=== PATIENT | female | born 1940 | race Caucasian/White ===

== ENCOUNTER 2016-03-19 12:30 | Inpatient (IN) | payer MEDICARE ==
[~2016-03-19] VITALS: Ht 162.6 cm; Wt 81.5 kg
[~2016-03-19 12:30] MED LIST: Aspirin Chew PO; CARV3.125 PO; FEMA2.5T PO; FURO1TAB60 PO; GLIM2TAB PO; LISI2.5T3 PO; METF500T PO; PRAS10TA PO; SIMV5TAB3 PO
[2016-03-19 12:32] VITALS: BP 127/79; PULSE 102; RESP 20; TEMP 97.9; O2SAT 94
--- NOTE | 2016-03-19 13:24 | PD ---
HPI Chief Complaint: Respiratory Symptoms Stated Complaint: SOB Time Seen by Provider: 13:24 Travel History International Travel<30 days: No Contact w/Intl Traveler<30days: No Known affected area: No History of Present Illness HPI 75-year-old female with history of CAD, recent stent placement in January 2016 , followed by Dr. Winn, breast cancer currently in remission, followed by Dr. Rodas, and diabetes, presents to the emergency department for evaluation of shortness of breath. Patient states that she is always mildly short of breath but it has gotten progressively worse and today she cannot even walk to the room and back without gasping for air. She denies any recent illnesses, fever, or chills. She has not had a cough. She denies any chest pain or tightness associated with this. Patient denies nausea or vomiting. No episodes of dizziness. She has no other symptoms to report. History Social History Alcohol Use: No Tobacco Use: No Allergies-Medications (Allergen,Severity, Reaction): Coded Allergies: Penicillin (Verified Allergy, Intermediate, rash, 01/27/16) Reported Meds & Prescriptions Reported Meds & Active Scripts Active Lisinopril 2.5 Mg Tab 2.5 Mg PO DAILY Effient (Prasugrel) 10 Mg Tab 10 Mg PO DAILY Lasix (Furosemide) 40 Mg Tab 40 Mg PO DAILY Coreg (Carvedilol) 3.125 Mg Tab 6.25 Mg PO Q12HR [Aspirin Chew] 81 MG Chew 81 Mg PO DAILY Reported Glimepiride 2 Mg Tab 2 Mg PO DAILY Take with breakfast or first main meal Metformin (Metformin HCl) 500 Mg Tab 1,000 Mg PO DAILY@1600 AT DINNER Metformin (Metformin HCl) 500 Mg Tab 500 Mg PO DAILY AT BREAKFAST Simvastatin 5 Mg Tab 20 Mg PO HS Femara (Letrozole) 2.5 Mg Tab 1 Tab PO DAILY Review of Systems Except as stated in HPI: all other systems reviewed are Neg Physical Exam Narrative GENERAL: Well-nourished female patient, sitting in a wheelchair, in no acute distress SKIN: Warm and dry. HEAD: Atraumatic. Normocephalic. EYES: Pupils equal and round. No scleral icterus. No injection or drainage. ENT: No nasal bleeding or discharge. Mucous membranes pink and moist. NECK: Trachea midline. No JVD. CARDIOVASCULAR: Tachycardic rate and rhythm. No murmur appreciated. RESPIRATORY: No accessory muscle use. Diminished to auscultation. Breath sounds equal bilaterally. GASTROINTESTINAL: Abdomen soft, non-tender, nondistended. Hepatic and splenic margins not palpable. MUSCULOSKELETAL: No obvious deformities. No clubbing. No cyanosis. 1+ bilateral lower extremity edema. NEUROLOGICAL: Awake and alert. No obvious cranial nerve deficits. Motor grossly within normal limits. Normal speech. PSYCHIATRIC: Appropriate mood and affect; insight and judgment normal. Data Data Last Documented VS Vital Signs Date Time Temp Pulse Resp B/P Pulse Ox O2 Delivery O2 Flow Rate FiO2 03/19/16 12:32 97.9 102 20 127/79 94 Room Air Orders Complete Blood Count With Diff (03/19/16 13:22) Basic Metabolic Panel (Bmp) (03/19/16 13:22) B-Type Natriuretic Peptide (03/19/16 13:22) D-Dimer (03/19/16 13:22) Act Partial Throm Time (Ptt) (03/19/16 13:22) Prothrombin Time / Inr (Pt) (03/19/16 13:22) Ckmb (Isoenzyme) Profile (03/19/16 13:22) Troponin I (03/19/16 13:22) Urinalysis - C+S If Indicated (03/19/16 13:22) Electrocardiogram (03/19/16 13:22) Chest, Single Ap (03/19/16 13:22) Labs Laboratory Tests Test 03/19/16 13:35 White Blood Count 7.6 TH/MM3 Red Blood Count 4.23 MIL/MM3 Hemoglobin 10.8 GM/DL Hematocrit 33.6 % Mean Corpuscular Volume 79.4 FL Mean Corpuscular Hemoglobin 25.6 PG Mean Corpuscular Hemoglobin 32.2 % Concent Red Cell Distribution Width 16.2 % Platelet Count 188 TH/MM3 Mean Platelet Volume 10.3 FL Neutrophils (%) (Auto) 70.4 % Lymphocytes (%) (Auto) 20.6 % Monocytes (%) (Auto) 7.3 % Eosinophils (%) (Auto) 1.1 % Basophils (%) (Auto) 0.6 % Neutrophils # (Auto) 5.3 TH/MM3 Lymphocytes # (Auto) 1.6 TH/MM3 Monocytes # (Auto) 0.6 TH/MM3 Eosinophils # (Auto) 0.1 TH/MM3 Basophils # (Auto) 0.0 TH/MM3 CBC Comment DIFF FINAL Differential Comment Prothrombin Time 11.7 SEC Prothromb Time International 1.1 RATIO Ratio Activated Partial 26.7 SEC Thromboplast Time D-Dimer Quantitative (PE/DVT) 1.79 MG/L FEU Sodium Level 140 MEQ/L Potassium Level 4.6 MEQ/L Chloride Level 107 MEQ/L Carbon Dioxide Level 25.4 MEQ/L Anion Gap 8 MEQ/L Blood Urea Nitrogen 16 MG/DL Creatinine 0.81 MG/DL Estimat Glomerular Filtration 69 ML/MIN Rate Random Glucose 192 MG/DL Calcium Level 9.2 MG/DL Total Creatine Kinase 38 U/L Troponin I 0.07 NG/ML B-Type Natriuretic Peptide 466 PG/ML MDM Medical Decision Making Medical Screen Exam Complete: Yes Emergency Medical Condition: Yes Medical Record Reviewed: Yes Differential Diagnosis CHF exacerbation versus ACS versus effusion versus malignancy Narrative Course 75 year-old female presents to the emergency department for evaluation of shortness of breath. Patient appears overall well and without distress. She does have 1+ edema bilateral lower extremities. She is mildly tachycardic. Workup is initiated in triage. With a medical bed becomes available, patient will be transferred to the medical pod and provider for further evaluation and disposition. Patient verbalizes understanding that if she chooses to leave prior to this, it would be AGAINST MEDICAL ADVICE and would not yet to have a diagnosis for safe disposition which could result in, but not limited to, worsening of her condition and or . Diagnosis Primary Impression: SOB (shortness of breath) Condition: Stable BasiaPennyMerlymonica RESENDIZ Mar 19, 2016 13:24
[2016-03-19 14:04] LABS: AUTOMATED NEUTROPHIL # 5.3 TH/MM3 (1.8-7.7); BASOPHIL % 0.6 % (0.0-2.0); EOSINOPHIL # 0.1 TH/MM3 (0-0.4); EOSINOPHIL % 1.1 % (0.0-4.0); HEMATOCRIT 33.6 % (35.0-46.0); HEMO FLAGS DIFF FINAL; LYMPH % 20.6 % (9.0-44.0); LYMPHOCYTE # 1.6 TH/MM3 (1.0-4.8); MEAN CELL VOLUME 79.4 FL (80.0-100.0); MEAN CORPUSCULAR HEMOGLOBIN 25.6 PG (27.0-34.0); MEAN CORPUSCULAR HGB CONC 32.2 % (32.0-36.0); MONO % 7.3 % (0.0-8.0); NEUT % 70.4 % (16.0-70.0); PLATELET COUNT 188 TH/MM3 (150-450); RED BLOOD COUNT 4.23 MIL/MM3 (4.00-5.30); RED CELL DISTRIBUTION WIDTH 16.2 % (11.6-17.2); WHITE BLOOD COUNT 7.6 TH/MM3 (4.0-11.0)
[2016-03-19 14:16] LABS: APTT (PATIENT) 26.7 SEC (24.3-30.1); INTERNATIONAL NORMALIZED RATIO 1.1 RATIO; PROTHROMBIN TIME - PATIENT 11.7 SEC (9.8-11.6)
[2016-03-19 14:22] LABS: BICARBONATE 25.4 MEQ/L (21.0-32.0); POTASSIUM 4.6 MEQ/L (3.5-5.1)
--- NOTE | 2016-03-19 15:02 | RADRPT ---
EXAM DATE/TIME: 03/19/2016 13:57 [facility] COMPARISON: CHEST SINGLE AP, January 27, 2016, 12:36. INDICATIONS : Short of breath for 2 weeks. MEDICAL HISTORY : Carcinoma, breast. Cardiovascular disease. SURGICAL HISTORY : Mastectomy, right. Cardiac stents. ENCOUNTER: Initial ACUITY: 2 weeks PAIN SCORE: 0/10 LOCATION: Bilateral chest FINDINGS: The heart is normal in size. There mild chronic interstitial changes. There is no overt congestive fa ilure. There is minimal blunting of the costophrenic sulcus bilaterally. There is a Holter monitor in place. The bony structures are grossly intact. CONCLUSION: 1. Chronic interstitial changes. Stable compared to previous examination. Davis Geronimo MD on March 19, 2016 at 14:49 Board Certified Radiologist. This report was verified electronically.
[2016-03-19 16:04] VITALS: BP 122/65; PULSE 97; RESP 20; O2SAT 95
--- NOTE | 2016-03-19 16:16 | EKG ---
Date Performed: 03/19/2016 Time Performed: 12:57:42 PTAGE: 75 years EKG: SINUS TACHYCARDIA WITH OCCASIONAL VENTRICULAR PREMATURE COMPLEXES POSSIBLE LEFT ATRIAL ENLA RGEMENT SEPTAL MYOCARDIAL INFARCTION ABNORMAL ECG COMPARED TO PRIOR ELECTROCARDIOGRAM, PVCs are now p resent. PREVIOUS TRACING : 01/28/2016 02.07 DOCTOR: Hayden Dominguez Interpretating Date/Time 03/19/2016 16:16:12
[2016-03-19 16:28] LABS: BLOOD, URINE NEG (NEG); COMMENT (UR) CULTURE INDICATED; CULTURE IF INDICATED CULTURE INDICATED; GLUCOSE,URINE NEG (NEG); KETONE, URINE TRACE mg/dL (NEG); MUCUS URINE FEW /lpf (OCC); NITRITE,URINE NEG (NEG); SQUAMOUS EPITHELIAL CELL URINE 1 /hpf (0-5); URINE COLOR YELLOW (YELLW/STRAW)
--- NOTE | 2016-03-19 16:50 | PD ---
Physical Exam Time Seen by Provider: 16:49 Narrative Patient was initially evaluated in triage by Merly jang DNP. See her note for initial assessment and evaluation. Patient states she has been with increased shortness of breath more than normal times one week. Worsening today and she called her card folder and was told to come to the ER. Belt Back Operator is Dr. Winn. She had stent placement in January and doesn't know why. She is also wearing a defibrillator and does not know why either. Denies recent surgery, rosacea, travel. Denies hemoptysis. Denies history of DVT or PE. Denies chest pain. Shortness of breath is worse with activity. Denies shortness of breath while at rest. She is currently on Eloquis; she says Dr. Winn placed her on Ahlquist after the stents were placed. Denies fever, chills, nausea, vomiting. Denies recent illness. Denies history of CHF. Denies asthma , COPD. Primary care provider is Dr. Ruelas. Allergic to penicillin. Denies tobacco use. History of diabetes, breast cancer. No other modifying factors or associated signs and symptoms. Data Data Last Documented VS Vital Signs Date Time Temp Pulse Resp B/P Pulse Ox O2 Delivery O2 Flow Rate FiO2 03/19/16 17:19 109 20 134/83 95 Room Air 03/19/16 12:32 97.9 Orders Complete Blood Count With Diff (03/19/16 13:22) Basic Metabolic Panel (Bmp) (03/19/16 13:22) B-Type Natriuretic Peptide (03/19/16 13:22) D-Dimer (03/19/16 13:22) Act Partial Throm Time (Ptt) (03/19/16 13:22) Prothrombin Time / Inr (Pt) (03/19/16 13:22) Ckmb (Isoenzyme) Profile (03/19/16 13:22) Troponin I (03/19/16 13:22) Urinalysis - C+S If Indicated (03/19/16 13:22) Electrocardiogram (03/19/16 13:22) Chest, Single Ap (03/19/16 13:22) Urine Culture (03/19/16 16:00) Ct Pulmonary Angiogram (03/19/16 ) Ceftriaxone Inj (Rocephin Inj) (03/19/16 17:15) Ckmb (Isoenzyme) Profile (03/19/16 17:15) Ckmb (Isoenzyme) Profile (03/19/16 20:15) Troponin I (03/19/16 17:15) Troponin I (03/19/16 20:15) Electrocardiogram (03/19/16 17:15) Electrocardiogram (03/19/16 20:15) Iohexol 350 Inj (Omnipaque 350 Inj) (03/19/16 17:58) Admit Order (Ed Use Only) (03/19/16 18:46) Labs Laboratory Tests Test 03/19/16 03/19/16 13:35 16:00 White Blood Count 7.6 TH/MM3 Red Blood Count 4.23 MIL/MM3 Hemoglobin 10.8 GM/DL Hematocrit 33.6 % Mean Corpuscular Volume 79.4 FL Mean Corpuscular Hemoglobin 25.6 PG Mean Corpuscular Hemoglobin 32.2 % Concent Red Cell Distribution Width 16.2 % Platelet Count 188 TH/MM3 Mean Platelet Volume 10.3 FL Neutrophils (%) (Auto) 70.4 % Lymphocytes (%) (Auto) 20.6 % Monocytes (%) (Auto) 7.3 % Eosinophils (%) (Auto) 1.1 % Basophils (%) (Auto) 0.6 % Neutrophils # (Auto) 5.3 TH/MM3 Lymphocytes # (Auto) 1.6 TH/MM3 Monocytes # (Auto) 0.6 TH/MM3 Eosinophils # (Auto) 0.1 TH/MM3 Basophils # (Auto) 0.0 TH/MM3 CBC Comment DIFF FINAL Differential Comment Prothrombin Time 11.7 SEC Prothromb Time International 1.1 RATIO Ratio Activated Partial 26.7 SEC Thromboplast Time D-Dimer Quantitative (PE/DVT) 1.79 MG/L FEU Sodium Level 140 MEQ/L Potassium Level 4.6 MEQ/L Chloride Level 107 MEQ/L Carbon Dioxide Level 25.4 MEQ/L Anion Gap 8 MEQ/L Blood Urea Nitrogen 16 MG/DL Creatinine 0.81 MG/DL Estimat Glomerular Filtration 69 ML/MIN Rate Random Glucose 192 MG/DL Calcium Level 9.2 MG/DL Total Creatine Kinase 38 U/L Troponin I 0.07 NG/ML B-Type Natriuretic Peptide 466 PG/ML Urine Color YELLOW Urine Turbidity HAZY Urine pH 5.0 Urine Specific [place] 1.020 Urine Protein NEG mg/dL Urine Glucose (UA) NEG mg/dL Urine Ketones TRACE mg/dL Urine Occult Blood NEG Urine Nitrite NEG Urine Bilirubin NEG Urine Urobilinogen LESS THAN 2.0 MG/DL Urine Leukocyte Esterase MOD Urine RBC 2 /hpf Urine WBC 13 /hpf Urine Squamous Epithelial 1 /hpf Cells Urine Mucus FEW /lpf Microscopic Urinalysis Comment CULTURE INDICATED MDM Medical Record Reviewed: Yes Supervised Visit with DSEIREE: Yes Narrative Course 75-year-old female initially evaluated in triage by Merly jang DNP. See her note for initial assessment and evaluation. Patient placed on cardiopulmonary monitor. Patient has had worsening shortness of breath over the past week. She was sent by her card folder Dr. Winn. Labs and radiology imaging reviewed. 164: Chest x-ray concludes Chronic interstitial changes. Stable compared to previous examination. CBC unremarkable. D-dimer 1.79. BNP 466. Troponin 0.07. Urinalysis was signs of infection. I spoke with Dr. Zhong, my attending physician, and she recommended CT pulmonary angiogram, serial cardiac enzymes, and to admit. CT pulmonary angiogram and serial cardiac enzymes ordered. Rocephin ordered for urinary tract infection. Call placed to Dr. Winn , the patient's card folder, to update him on patient's status. 1800: Talked with Dr. Moss, Belt Back Operator on-call for Dr. Winn, and updated him on patient's status. 1844: I spoke with [facility] Hospitalist; report given and patient will be admitted to Dr. Romero. Physician Communication Physician Communication Dr. [facility] Diagnosis Primary Impression: SOB (shortness of breath) Additional Impression: UTI (urinary tract infection) Qualified Code: N39.0 - Urinary tract infection without hematuria, site unspecified Admitting Information Admitting Physician Requests: Admit Joycelyn Doan [facility] Mar 19, 2016 16:50
[2016-03-19] MEDS ORDERED: ZOCO20TA PO (17:15)
[2016-03-19] MEDS ORDERED: cefTRIAXone INJ 1,000 MG in SODIUM CHLORIDE 0.9% INJ 100 ML IV ONE (17:15)
[2016-03-19] MEDS ORDERED: ASPI81CH CHEW (17:15)
[2016-03-19] MEDS ORDERED: CARV3.125 PO (17:16)
[2016-03-19] MEDS ORDERED: SPIR25TA PO (17:16)
[2016-03-19 17:19] VITALS: BP 134/83; PULSE 109; RESP 20; O2SAT 95
[2016-03-19] MEDS ORDERED: ZOCO40TA PO (17:19)
[2016-03-19] MEDS ORDERED: IOHEXOL 350 MG/ML 10 ML VIAL (for RAD DIAG) IV ONE (17:58)
--- NOTE | 2016-03-19 18:10 | RADRPT ---
EXAM DATE/TIME: 03/19/2016 17:48 [facility] COMPARISON: CHEST SINGLE AP, March 19, 2016, 13:57. INDICATIONS : Shortness of breath worsening in past week. IV CONTRAST: 84 cc Omnipaque 350 (iohexol) IV RADIATION DOSE: 23.38 CTDIvol (mGy) MEDICAL HISTORY : Carcinoma, breast. Hypercholesterolemia. SURGICAL HISTORY : Mastectomy, right. Coronary artery stent. ENCOUNTER: Initial ACUITY: 1 week PAIN SCALE: 0/10 LOCATION: chest TECHNIQUE: Volumetric scanning of the chest was performed using a pulmonary embolism protocol MIP images were re constructed. Using automated exposure control and adjustment of the mA and/or kV according to patien t size, radiation dose was kept as low as reasonably achievable to obtain optimal diagnostic quality images. FINDINGS: PULMONARY ARTERIES: No filling defects are seen in the pulmonary arteries through the segmental level. LUNGS: Mild occasional scarring or atelectasis. 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 Mildly enlarged AP window lymph node. MUSCULOSKELETAL: Within normal limits for patient age. MISCELLANEOUS: Previous right mastectomy. The visualized upper abdominal organs demonstrate no acute abnormality. CONCLUSION: No evidence of pulmonary embolism. Small bilateral pleural effusions. Mildly prominent AP window lymph node. Lizandro Nayak MD on March 19, 2016 at 18:04 Board Certified Radiologist. This report was verified electronically.
[2016-03-19] MEDS ORDERED: ONDANSETRON HCL 4 MG/2 ML VIAL IVP PRN (18:45)
[2016-03-19] MEDS ORDERED: NALOXONE HCL 0.4 MG/ML AMP IV PRN (18:45)
[2016-03-19] MEDS ORDERED: SODIUM CHLORIDE 0.9% FLUSH 5 ML FLUSH FLUSH PRN (18:45)
--- NOTE | 2016-03-19 19:26 | PD ---
Data Data Last Documented VS Vital Signs Date Time Temp Pulse Resp B/P Pulse Ox O2 Delivery O2 Flow Rate FiO2 03/19/16 17:19 109 20 134/83 95 Room Air 03/19/16 12:32 97.9 Orders Complete Blood Count With Diff (03/19/16 13:22) Basic Metabolic Panel (Bmp) (03/19/16 13:22) B-Type Natriuretic Peptide (03/19/16 13:22) D-Dimer (03/19/16 13:22) Act Partial Throm Time (Ptt) (03/19/16 13:22) Prothrombin Time / Inr (Pt) (03/19/16 13:22) Ckmb (Isoenzyme) Profile (03/19/16 13:22) Troponin I (03/19/16 13:22) Urinalysis - C+S If Indicated (03/19/16 13:22) Electrocardiogram (03/19/16 13:22) Chest, Single Ap (03/19/16 13:22) Urine Culture (03/19/16 16:00) Ct Pulmonary Angiogram (03/19/16 ) Ceftriaxone Inj (Rocephin Inj) (03/19/16 17:15) Ckmb (Isoenzyme) Profile (03/19/16 17:15) Ckmb (Isoenzyme) Profile (03/19/16 20:15) Troponin I (03/19/16 17:15) Troponin I (03/19/16 20:15) Electrocardiogram (03/19/16 17:15) Electrocardiogram (03/19/16 20:15) Iohexol 350 Inj (Omnipaque 350 Inj) (03/19/16 17:58) Admit Order (Ed Use Only) (03/19/16 18:46) Labs Laboratory Tests Test 03/19/16 03/19/16 03/19/16 13:35 16:00 17:30 White Blood Count 7.6 TH/MM3 Red Blood Count 4.23 MIL/MM3 Hemoglobin 10.8 GM/DL Hematocrit 33.6 % Mean Corpuscular Volume 79.4 FL Mean Corpuscular Hemoglobin 25.6 PG Mean Corpuscular Hemoglobin 32.2 % Concent Red Cell Distribution Width 16.2 % Platelet Count 188 TH/MM3 Mean Platelet Volume 10.3 FL Neutrophils (%) (Auto) 70.4 % Lymphocytes (%) (Auto) 20.6 % Monocytes (%) (Auto) 7.3 % Eosinophils (%) (Auto) 1.1 % Basophils (%) (Auto) 0.6 % Neutrophils # (Auto) 5.3 TH/MM3 Lymphocytes # (Auto) 1.6 TH/MM3 Monocytes # (Auto) 0.6 TH/MM3 Eosinophils # (Auto) 0.1 TH/MM3 Basophils # (Auto) 0.0 TH/MM3 CBC Comment DIFF FINAL Differential Comment Prothrombin Time 11.7 SEC Prothromb Time International 1.1 RATIO Ratio Activated Partial 26.7 SEC Thromboplast Time D-Dimer Quantitative (PE/DVT) 1.79 MG/L FEU Sodium Level 140 MEQ/L Potassium Level 4.6 MEQ/L Chloride Level 107 MEQ/L Carbon Dioxide Level 25.4 MEQ/L Anion Gap 8 MEQ/L Blood Urea Nitrogen 16 MG/DL Creatinine 0.81 MG/DL Estimat Glomerular Filtration 69 ML/MIN Rate Random Glucose 192 MG/DL Calcium Level 9.2 MG/DL Total Creatine Kinase 38 U/L 33 U/L Troponin I 0.07 NG/ML 0.06 NG/ML B-Type Natriuretic Peptide 466 PG/ML Urine Color YELLOW Urine Turbidity HAZY Urine pH 5.0 Urine Specific [place] 1.020 Urine Protein NEG mg/dL Urine Glucose (UA) NEG mg/dL Urine Ketones TRACE mg/dL Urine Occult Blood NEG Urine Nitrite NEG Urine Bilirubin NEG Urine Urobilinogen LESS THAN 2.0 MG/DL Urine Leukocyte Esterase MOD Urine RBC 2 /hpf Urine WBC 13 /hpf Urine Squamous Epithelial 1 /hpf Cells Urine Mucus FEW /lpf Microscopic Urinalysis Comment CULTURE INDICATED MDM Supervised Visit with DESIREE: Yes Narrative Course The history, exam, and medical decision-making in the associated midlevel provider note were completed with my assistance. I reviewed and agree with the findings presented. I attest that I had a [id number] encounter with the patient on the same day, and personally performed and documented my assessment and findings in the medical record. *My assessment and Findings: This is a 75-year-old female with a history congestive heart failure and recent an STEMI who presents to the emergency department with increasing dyspnea on exertion. Patient was recently changed from her Lasix to spironolactone and she says ever since then she's been feeling increasingly short of breath. She denies any chest pain. She was placed on a monitor and an IV was established. EKG was reassuring. I think patient requires observation for serial cardiac enzymes and cardiology consultation to ensure this is not an anginal equivalent. Diagnosis Primary Impression: SOB (shortness of breath) Additional Impression: UTI (urinary tract infection) Qualified Code: N39.0 - Urinary tract infection without hematuria, site unspecified Lisa Traylor MD Mar 19, 2016 19:26
[2016-03-19] MEDS: FUROSEMIDE 40 MG/4 ML VIAL IV PUSH SCH (19:42)
[2016-03-19 19:43] VITALS: BP 118/64; PULSE 102; RESP 22; O2SAT 95
[2016-03-19] MEDS: PRAVASTATIN SOD 80 MG TAB PO SCH (21:34)
[2016-03-19] MEDS: HEPARIN SODIUM - SQ 10,000 UNITS/ML VIAL SQ SCH (21:34)
[2016-03-19] MEDS: SODIUM CHLORIDE 0.9% FLUSH 5 ML FLUSH FLUSH SCH (21:34)
[2016-03-19] MEDS: CARVEDILOL 3.125 MG TAB PO SCH (21:34)
[2016-03-19] MEDS: ASPIRIN 81 MG CHEW TAB CHEW SCH (21:34)
[2016-03-19 21:35] VITALS: BP 125/67; PULSE 102; RESP 24; O2SAT 95
[2016-03-19 22:15] VITALS: BP 125/68; PULSE 101; RESP 16; TEMP 98.3; O2SAT 99
[2016-03-19] MEDS: GLIMEPIRIDE 2 MG TAB PO SCH (23:24)
[2016-03-20] VITALS (8 sets, daily range): BP systolic 108–126; BP diastolic 61–95; PULSE 88–108; RESP 16–24; TEMP 97.1–99.5; O2SAT 92–100
[2016-03-20 04:40] LABS: AUTOMATED NEUTROPHIL # 4.4 TH/MM3 (1.8-7.7); BASOPHIL % 0.6 % (0.0-2.0); EOSINOPHIL # 0.1 TH/MM3 (0-0.4); EOSINOPHIL % 1.7 % (0.0-4.0); HEMATOCRIT 31.7 % (35.0-46.0); HEMO FLAGS DIFF FINAL; LYMPH % 27.7 % (9.0-44.0); MEAN CELL VOLUME 77.4 FL (80.0-100.0); MEAN CORPUSCULAR HEMOGLOBIN 25.6 PG (27.0-34.0); MEAN CORPUSCULAR HGB CONC 33.1 % (32.0-36.0); MONO % 9.4 % (0.0-8.0); NEUT % 60.6 % (16.0-70.0); PLATELET COUNT 166 TH/MM3 (150-450); RED CELL DISTRIBUTION WIDTH 15.9 % (11.6-17.2); WHITE BLOOD COUNT 7.3 TH/MM3 (4.0-11.0)
[2016-03-20 05:05] LABS: BICARBONATE 27.8 MEQ/L (21.0-32.0); POTASSIUM 3.8 MEQ/L (3.5-5.1)
--- NOTE | 2016-03-20 05:31 | EKG ---
Date Performed: 03/19/2016 Time Performed: 18:10:56 PTAGE: 75 years EKG: BASELINE ARTIFACT PRESENT. SINUS TACHYCARDIA POSSIBLE LEFT ATRIAL ENLARGEMENT SEPTAL MYOCAR DIAL INFARCTION ABNORMAL ECG Nonspecific T wave changes COMPARED TO PRIOR ELECTROCARDIOGRAM, PVCs are no longer seen. PREVIOUS TRACING : 03/19/2016 12.57 DOCTOR: Hayden Dominguez Interpretating Date/Time 03/20/2016 05:31:19
[2016-03-20] MEDS ORDERED: LETROZOLE 2.5 MG PO SCH (09:00)
--- NOTE | 2016-03-20 09:23 | HHI.HP ---
HPI Service [facility] Primary Care Physician Non-Staff Admission Diagnosis shortness of breath, urinary tract infection Diagnoses: Chief Complaint: sob (Bebe Acosta) Travel History International Travel<30 Days: No Contact w/Intl Traveler <30 Da: No Traveled to Known Affected Are: No (Bebe Acosta) History of Present Illness This is a 75-year-old female patient with past medical history which includes breast cancer status post mastectomy chemo and radiation 16 years ago, thyroid nodularities s/p biopsy-benign, hyperlipidemia and diabetes mellitus type 2. Patient was recently admitted in January for chest pain, was found positive for non-STEMI, CHF. Underwent PCI with stent to mid LAD 01/2016. Was found with EF of 15%, was ordered a Life vest. Patient was discharged home in stable condition with instructions to follow up with cardiology for evaluation of LV function and further plans for cardiomyopathy. According to the patient, she has been mildly short of breath with activity however since yesterday she has noted increased dyspnea with minimal exertion. States that she was gasping for air. No chest pain, no palpitations. Has noted increased ankle swelling. Has been compliant with taking diuretics. Patient denies any fever, no chills, no recent illnesses. No abdominal pain, no nausea vomiting or diarrhea. Patient was evaluated in the emergency room, CBC was remarkable for hemoglobin 10.8 and hematocrit of 33.6. BMP was unremarkable, blood glucose was 182. Troponin mildly elevated 0.07. B natruretic peptide 466. UA was positive for leukocyte esterase and WBC. No urinary symptoms. Chest x-ray showed chronic interstitial changes that were stable compared to previous exam. CTA was completed, pulmonary embolism was ruled out. She was noted with small bilateral pleural effusions, mildly prominent AP window lymph node. Cardiology was called from the emergency room and informed of patient admission. Patient received Lasix and has been diuresing well. Indications feeling slightly improved. She was started on Rocephin for UTI. Patient is admitted for further evaluation and treatment. (Bebe Acosta) Review of Systems Constitutional: COMPLAINS OF: Weight gain, DENIES: Diaphoretic episodes, Fatigue, Fever, Weight loss, Chills, Dizziness, Change in appetite, Night Sweats Endocrine: DENIES: Abnorml menstrual pattern, Heat/cold intolerance, Polydipsia , Polyuria, Polyphagia Eyes: DENIES: Blurred vision, Diplopia, Eye inflammation, Eye pain, Vision loss , Photosensitivity, Double Vision Ears, nose, mouth, throat: DENIES: Tinnitus, Hearing loss, Vertigo, Nasal discharge, Oral lesions, Throat pain, Hoarseness, Ear Pain, Running Nose, Epistaxis, Sinus Pain, Toothache, Odynophagia Respiratory: DENIES: Apneas, Cough, Snoring, Wheezing, Hemoptysis, Sputum production, Shortness of breath Cardiovascular: COMPLAINS OF: Dyspnea on Exertion, Lower Extremity Edema, DENIES: Chest pain, Palpitations, Syncope, PND, Orthopnea, Claudication Gastrointestinal: DENIES: Abdominal pain, Black stools, Bloody stools, Constipation, Diarrhea, Nausea, Vomiting, Difficulty Swallowing, Anorexia Genitourinary: DENIES: Abnormal vaginal bleeding, Dysmenorrhea, Dyspareunia, Sexual dysfunction, Urinary frequency, Urinary incontinence, Urgency, Hematuria , Dysuria, Nocturia, Vaginal discharge Musculoskeletal: DENIES: Joint pain, Muscle aches, Stiffness, Joint Swelling, Back pain, Neck pain Integumentary: DENIES: Abnormal pigmentation, Pruritus, Rash, Nail changes, Breast masses, Breast skin changes, Nipple discharge Hematologic/lymphatic: DENIES: Bruising, Lymphadenopathy Immunologic/allergic: DENIES: Eczema, Urticaria Neurologic: DENIES: Abnormal gait, Headache, Localized weakness, Paresthesias, Seizures, Speech Problems, Tremor, Poor Balance Psychiatric: DENIES: Anxiety, Confusion, Mood changes, Depression, Hallucinations, Agitation, Suicidal Ideation, Homicidal Ideation, Delusions ( Bebe Acosta) Past Family Social History Past Medical History status post mastectomy chemo and radiation 16 years ago, thyroid nodularities s/ p biopsy-benign, hyperlipidemia and diabetes mellitus type 2 S/P NSTEMI, PCI with stent to mid LAD 01/2016. Was found with EF of 15%, was ordered a Life vest CHF Past Surgical History Right mastectomy S/P cardiac cath with PCI and stent to mid LAD Reported Medications Reported Meds & Active Scripts Active Effient (Prasugrel) 10 Mg Tab 10 Mg PO DAILY Reported Zocor (Simvastatin) 40 Mg Tab 40 Mg PO HS Spironolactone 25 Mg Tab 25 Mg PO DAILY Coreg (Carvedilol) 3.125 Mg Tab 3.125 Mg PO Q12HR Aspirin 81 Mg Chew 81 Mg CHEW HS Glimepiride 2 Mg Tab 2 Mg PO BID Metformin (Metformin HCl) 500 Mg Tab 500 Mg PO BIDPC Femara (Letrozole) 2.5 Mg Tab 2.5 Mg PO DAILY (Bebe Acosta) Allergies: Coded Allergies: Penicillin (Verified Allergy, Intermediate, rash, 03/19/16) Active Ordered Medications Inpatient Medications Aspirin (Aspirin Chew) 81 mg HS CHEW Last administered on 03/19/16 21:34; Start 03/19/16 at 21:00 Carvedilol (Coreg) 3.125 mg Q12HR PO Last administered on 03/20/16 10:07; Start 03/19/16 at 21:00 Ceftriaxone Sodium/Sodium Chloride (Rocephin Inj/NS Inj) 100 ml @ 200 mls/hr ONCE ONCE IV Last administered on 03/19/16 17:19; Start 03/19/16 at 17:15; Stop 03/19/16 at 17:44; Status DC Furosemide (Lasix Inj) 40 mg BID@09,18 IV PUSH Last administered on 03/20/16 10 :06; Start 03/19/16 at 19:00 Glimepiride (Amaryl) 2 mg BID PO Last administered on 03/20/16 10:07; Start 03/19/16 at 21:00 Heparin Sodium (Porcine) (Heparin Inj) 5,000 units Q12HR SQ Last administered on 03/20/16 10:07; Start 03/19/16 at 21:00 IV Flush (NS Flush) 2 ml BID FLUSH Last administered on 03/20/16 10:09; Start 03/19/16 at 21:00 Naloxone HCl (Narcan Inj) 0.4 mg UNSCH PRN IV SEE LABEL COMMENTS; Start at 18:45 Ondansetron HCl (Zofran Inj) 4 mg Q6H PRN IVP NAUSEA OR VOMITING; Start at 18:45 Patient Own Medication PT OWN MED: LETROZ... DAILY PO ; Start 03/20/16 at 09:00; Status Hold Prasugrel (Effient) 10 mg DAILY PO Last administered on 03/20/16 10:08; Start 03/20/16 at 09:00 Pravastatin Sodium (Pravachol) 80 mg HS PO Last administered on 03/19/16 21:34 ; Start 03/19/16 at 21:00 Sacubitril/ Valsartan (Entresto 24-26 Mg) 1 tab BID PO Last administered on 03/20 14:54; Start 03/20/16 at 13:30 Spironolactone (Aldactone) 25 mg DAILY PO Last administered on 03/20/16 10:08; Start 03/20/16 at 09:00 Family History Mother secondary leukemia Father secondary to CA at 72 Social History Patient denies EtOH use illicit drug use or tobacco use. Lives with and son. (Bebe Acosta) Physical Exam Vital Signs Vital Signs Date Time Temp Pulse Resp B/P Pulse Ox O2 Delivery O2 Flow Rate FiO2 03/20/16 08:00 98.7 105 24 126/67 92 03/20/16 03:40 97.1 97 20 113/69 100 03/20/16 00:15 97.7 96 23 123/65 96 03/20/16 00:00 102 03/19/16 22:15 98.3 101 16 125/68 99 03/19/16 21:35 102 24 125/67 95 Room Air 03/19/16 19:43 102 22 118/64 95 Room Air 03/19/16 17:19 109 20 134/83 95 Room Air 03/19/16 16:04 97 20 122/65 95 Room Air 03/19/16 12:32 97.9 102 20 127/79 94 Room Air Physical Exam GENERAL: This is a well-nourished, well-developed patient, in no apparent distress. SKIN: No rashes, ecchymoses or lesions. Cool and dry. HEAD: Atraumatic. Normocephalic. No temporal or scalp tenderness. EYES: Pupils equal round and reactive. Extraocular motions intact. No scleral icterus. No injection or drainage. ENT: Nose without bleeding, purulent drainage or septal hematoma. Throat without erythema, tonsillar hypertrophy or exudate. Uvula midline. Airway patent. NECK: Trachea midline. No JVD or lymphadenopathy. Supple, nontender, no meningeal signs. CARDIOVASCULAR: Regular rate and rhythm without murmurs, gallops, or rubs. Patient wearing LifeVest. RESPIRATORY: Breath sounds noted with faint bibasilar rales GASTROINTESTINAL: Abdomen soft, non-tender, nondistended. No hepato-splenomegaly , or palpable masses. No guarding. MUSCULOSKELETAL: Extremities without clubbing, cyanosis. Has ankle edema, +1, pedal pulses 2+. No joint tenderness, effusion, or edema noted. No calf tenderness. Negative Homans sign bilaterally. NEUROLOGICAL: Awake and alert. Cranial nerves II through XII intact. Motor and sensory grossly within normal limits. Five out of 5 muscle strength in all muscle groups. Normal speech. Laboratory Laboratory Tests Test 03/19/16 03/19/16 03/19/16 03/19/16 13:35 16:00 17:30 21:30 White Blood Count 7.6 Red Blood Count 4.23 Hemoglobin 10.8 Hematocrit 33.6 Mean Corpuscular Volume 79.4 Mean Corpuscular Hemoglobin 25.6 Mean Corpuscular Hemoglobin 32.2 Concent Red Cell Distribution Width 16.2 Platelet Count 188 Mean Platelet Volume 10.3 Neutrophils (%) (Auto) 70.4 Lymphocytes (%) (Auto) 20.6 Monocytes (%) (Auto) 7.3 Eosinophils (%) (Auto) 1.1 Basophils (%) (Auto) 0.6 Neutrophils # (Auto) 5.3 Lymphocytes # (Auto) 1.6 Monocytes # (Auto) 0.6 Eosinophils # (Auto) 0.1 Basophils # (Auto) 0.0 CBC Comment DIFF FINAL Differential Comment Prothrombin Time 11.7 Prothromb Time International 1.1 Ratio Activated Partial 26.7 Thromboplast Time D-Dimer Quantitative (PE/DVT) 1.79 Sodium Level 140 Potassium Level 4.6 Chloride Level 107 Carbon Dioxide Level 25.4 Anion Gap 8 Blood Urea Nitrogen 16 Creatinine 0.81 Estimat Glomerular Filtration 69 Rate Random Glucose 192 Calcium Level 9.2 Total Creatine Kinase 38 33 40 Troponin I 0.07 0.06 0.07 B-Type Natriuretic Peptide 466 Urine Color YELLOW Urine Turbidity HAZY Urine pH 5.0 Urine Specific [place] 1.020 Urine Protein NEG Urine Glucose (UA) NEG Urine Ketones TRACE Urine Occult Blood NEG Urine Nitrite NEG Urine Bilirubin NEG Urine Urobilinogen LESS THAN 2.0 Urine Leukocyte Esterase MOD Urine RBC 2 Urine WBC 13 Urine Squamous Epithelial 1 Cells Urine Mucus FEW Microscopic Urinalysis Comment CULTURE INDICATED Test 03/20/16 04:07 White Blood Count 7.3 Red Blood Count 4.10 Hemoglobin 10.5 Hematocrit 31.7 Mean Corpuscular Volume 77.4 Mean Corpuscular Hemoglobin 25.6 Mean Corpuscular Hemoglobin 33.1 Concent Red Cell Distribution Width 15.9 Platelet Count 166 Mean Platelet Volume 9.7 Neutrophils (%) (Auto) 60.6 Lymphocytes (%) (Auto) 27.7 Monocytes (%) (Auto) 9.4 Eosinophils (%) (Auto) 1.7 Basophils (%) (Auto) 0.6 Neutrophils # (Auto) 4.4 Lymphocytes # (Auto) 2.0 Monocytes # (Auto) 0.7 Eosinophils # (Auto) 0.1 Basophils # (Auto) 0.0 CBC Comment DIFF FINAL Differential Comment Sodium Level 140 Potassium Level 3.8 Chloride Level 102 Carbon Dioxide Level 27.8 Anion Gap 10 Blood Urea Nitrogen 18 Creatinine 0.77 Estimat Glomerular Filtration 73 Rate Random Glucose 159 Calcium Level 8.9 Total Creatine Kinase 28 Troponin I 0.08 Date/Time Procedure Status Source Growth 03/19/16 16:00 Urine Culture Received Urine Clean Catch Pending (Bebe AcostaP) Result Diagram: 03/20/1640603/20/16406 Assessment and Plan Problem List: (1) SOB (shortness of breath) (2) Congestive heart failure (3) UTI (urinary tract infection) (4) Hyperlipidemia (5) DM (diabetes mellitus) (6) ACS (acute coronary syndrome) (7) Hx of non-ST elevation myocardial infarction (NSTEMI) (8) Cardiomyopathy (9) History of placement of stent in LAD coronary artery (10) HX: breast cancer Assessment and Plan Admit to Dr. Vann 75-year-old female patient with recent admission in January for chest pain, was found positive for non-STEMI, CHF. Underwent PCI with stent to mid LAD 2015. Was found with EF of 15%, was ordered a Life vest. Pt. admitted for acute on chronic CHF exacerbation: -Continuous cardiac telemetry -Continue with Lasix 40 mg IV twice a day -Monitor intake and output -Continue Aldactone Consult Dr. Winn for evaluation Serial cardiac enzymes Continue Effient, aspirin, Coreg -Continue with LifeVest UTI -continue antibiotics, follow cultures Hypertension, stable Continue with home medications Type 2 diabetes, stable -Accu-Cheks before meals and at bedtime with insulin therapy as needed Continue Amaryl History of breast cancer, on remission, takes Femara. Follows up regularly with Dr. Rodas -Continue with Femara Hyperlipidemia Continue with home meds Home medications reviewed, initiated as indicated Heparin for DVT prophylaxis Plan of care has been discussed with the patient, attending and registered nurse. Further management of the patient will be dependent on hospital course This patient was seen by myself and Dr. Vann, this H&P is written on his behalf (Bebe Acosta) Assessment and Plan Pt seen and examined as above chart reviewed plan of care risa bentonp risa rn tonny follow (Raquel Vann MD) Physician Certification 2 Midnight Certification Type: Admission for Inpatient Services Order for Inpatient Services The services are ordered in accordance with Medicare regulations or non- Medicare payer requirements, as applicable. In the case of services not specified as inpatient-only, they are appropriately provided as inpatient services in accordance with the 2-midnight benchmark. Estimated LOS (days): 2 2 days is the estimated time the patient will need to remain in the hospital, assuming treatment plan goals are met and no additional complications. Post-Hospital Plan: Home (Bebe Acosta) Problem Qualifiers (1) Congestive heart failure: Qualified Code: I50.23 - Acute on chronic systolic congestive heart failure (2) UTI (urinary tract infection): Qualified Code: N39.0 - Urinary tract infection without hematuria, site unspecified (3) Hyperlipidemia: Qualified Code: E78.5 - Hyperlipidemia, unspecified hyperlipidemia type (4) DM (diabetes mellitus): Qualified Code: E11.8 - Type 2 diabetes mellitus with complication, without long-term current use of insulin (5) Cardiomyopathy: Qualified Code: I42.9 - Cardiomyopathy, unspecified type Bebe Acosta Mar 20, 2016 09:23 Raquel Vann MD Mar 20, 2016 17:52
--- NOTE | 2016-03-20 09:49 | EKG ---
Date Performed: 03/19/2016 Time Performed: 21:41:39 PTAGE: 75 years EKG: SINUS TACHYCARDIA WITH OCCASIONAL VENTRICULAR PREMATURE COMPLEXES SEPTAL MYOCARDIAL INFARCT ION Nonspecific T wave changes COMPARED TO PRIOR ELECTROCARDIOGRAM, PVCs are seen. PREVIOUS TRACING : 03/19/2016 18.10 DOCTOR: Hayden Dominguez Interpretating Date/Time 03/20/2016 09:48:35
[2016-03-20] MEDS: FUROSEMIDE 40 MG/4 ML VIAL IV PUSH SCH ×2 (10:06→18:21)
[2016-03-20] MEDS: HEPARIN SODIUM - SQ 10,000 UNITS/ML VIAL SQ SCH ×2 (10:07→20:57)
[2016-03-20] MEDS: GLIMEPIRIDE 2 MG TAB PO SCH ×2 (10:07→21:05)
[2016-03-20] MEDS: CARVEDILOL 3.125 MG TAB PO SCH ×2 (10:07→20:56)
[2016-03-20] MEDS: PRASUGREL 10 MG TAB PO SCH (10:08)
[2016-03-20] MEDS: SPIRONOLACTONE 25 MG TAB PO SCH (10:08)
[2016-03-20] MEDS: SODIUM CHLORIDE 0.9% FLUSH 5 ML FLUSH FLUSH SCH ×2 (10:09→20:56)
--- NOTE | 2016-03-20 13:03 | MB ---
cc: MASOOD OSUNA DATE OF 1940 DATE OF CONSULTATION March 20, 2016 REASON FOR CONSULTATION Heart failure. HISTORY OF PRESENT ILLNESS A 75-year-old female with a past medical history significant for diabetes, hypertension, hyperlipidemia, breast cancer status post mastectomy and recent admission in January for non-ST elevation [place], found to have a severely depressed ejection fraction of 15%, a stent was placed in the LAD. She presented to the emergency department yesterday with complaints of acute onset of shortness of breath with exertion and leg edema. She reports that all of a sudden yesterday while at home, she was having problems with minimal exertion when she was walking around and some leg edema. The shortness of breath worse enough that she called our office and she was recommended to present to the emergency department. She reports being compliant with medications, however lasix was stopped couple of weeks ago. Here in the emergency department she was found to be in acute and chronic systolic heart failure for which she was started on IV diuresis with good urine output. She denies chest pain, palpitations, PND, fevers, chills, nausea or vomiting, diarrhea. She denies noncompliance with medication or diet. The patient also has a Life Vest which she uses and she has not had any shocks. REVIEW OF SYSTEMS Negative except as mentioned in the HPI. ALLERGIES PENICILLIN. SOCIAL HISTORY Denies smoking, drinking or illicit drug use. FAMILY HISTORY Non-contributory. HOME MEDICATIONS 1. Aspirin 81. 2. Coreg 3.125. 3. Prasugrel 10. 4. Zocor 40. 5. Atenolol 25. PHYSICAL EXAMINATION VITAL SIGNS: Temperature 97, blood pressure of 126/67 heart rate of 105, respiratory rate of 24. O2 sat 92% RA. GENERAL: She is awake, alert, oriented x 3, in no acute distress. She is up, walking around her room. HEENT/NECK: There is no JVD, no carotid bruits. HEART: Normal S1 and S2. Regular rate and rhythm. No murmurs, rubs, or gallops appreciated. ABDOMEN: Soft, not tender, not distended. Positive bowel sounds. EXTREMITIES: There is +1 edema in the bilateral lower extremities. No cyanosis. Pulses throughout. LABORATORY DATA Hemoglobin of 10, hematocrit of 31, platelet count of 166. INR of 1.1. Sodium of 140, potassium 3.8, BUN 18, creatinine 0.77. Troponins of 0.06, 0.07 and 0.08. BNP is 466. IMAGING STUDIES CTA is negative for PE. Chest x-ray shows some chronic interstitial changes. EKG Sinus tachycardia with non-specific ST changes. ASSESSMENT AND PLAN 75-year-old female admitted with acute on chronic systolic heart failure in the setting of discontinuing her Lasix at home. Currently she remains fairly hemodynamically stable. She denies any chest pain and she reports some relief from the shortness of breath, however, it is still present. I think at this point we should continue the heart failure management with IV diuresis as well as obtain optimal medical therapy. We should start Entresto, continue the Lasix IV and repeat an echocardiogram to assess LV systolic function. RECOMMENDATIONS 1. Start Entresto. 2. Repeat echocardiogram. 3. Continue IV diuresis with Lasix. 4. Strict input and output as well as daily weights. Thank you for the opportunity to take part in the care of this patient. We will follow with you. Further therapy to be determined. MD STEPHANE Gutierrez/SSB /12:22 PM /12:37 PM JERI
[2016-03-20] MEDS: SACUBITRIL/VALSARTAN 24 MG-26 MG TAB PO SCH ×2 (14:54→21:05)
[2016-03-20] MEDS ORDERED: GLUCAGON 1 MG/ML VIAL OTHER PRN (17:00)
[2016-03-20] MEDS ORDERED: DEXTROSE 50% IN WATER 50 ML VIAL(D50) IV PUSH PRN (17:00)
[2016-03-20] MEDS: diphenhydrAMINE HCL 25 MG CAP PO PRN (20:56)
[2016-03-20] MEDS: PRAVASTATIN SOD 80 MG TAB PO SCH (20:56)
[2016-03-20] MEDS: ASPIRIN 81 MG CHEW TAB CHEW SCH (20:56)
[2016-03-20] MEDS: INSULIN ASPART SUPPLEMENTAL SCALE SQ SCH (21:06)
[2016-03-21 04:00] VITALS: BP 113/70; PULSE 100; RESP 18; TEMP 97.4; O2SAT 93
[2016-03-21] MEDS: INSULIN ASPART SUPPLEMENTAL SCALE SQ SCH ×4 (05:06→22:05)
[2016-03-21 08:00] VITALS: BP 120/66; PULSE 96; RESP 17; TEMP 98.1; O2SAT 93
[2016-03-21] MEDS: SODIUM CHLORIDE 0.9% FLUSH 5 ML FLUSH FLUSH SCH ×2 (08:53→22:02)
[2016-03-21] MEDS: FUROSEMIDE 40 MG/4 ML VIAL IV PUSH SCH ×2 (08:53→16:16)
[2016-03-21] MEDS: HEPARIN SODIUM - SQ 10,000 UNITS/ML VIAL SQ SCH ×2 (08:56→22:04)
[2016-03-21] MEDS: CARVEDILOL 3.125 MG TAB PO SCH ×2 (08:56→22:04)
[2016-03-21] MEDS: SPIRONOLACTONE 25 MG TAB PO SCH (08:56)
[2016-03-21] MEDS: GLIMEPIRIDE 2 MG TAB PO SCH ×2 (08:56→22:02)
[2016-03-21] MEDS: SACUBITRIL/VALSARTAN 24 MG-26 MG TAB PO SCH ×2 (08:58→22:03)
[2016-03-21] MEDS: PRASUGREL 10 MG TAB PO SCH (08:58)
--- NOTE | 2016-03-21 11:43 | HHI.PR ---
Subjective Remarks sitting up in chair no sob with activity no cp no palpitations "I feel great, I"m ready to go home" explained she has to wait for echo to be done diuresing well Objective Objective Results - Vital Signs Date Time Temp Pulse Resp B/P Pulse Ox O2 Delivery O2 Flow Rate FiO2 03/21/16 08:00 98.1 96 17 120/66 93 03/21/16 04:00 97.4 100 18 113/70 93 03/20/16 22:45 97.7 88 18 108/64 94 03/20/16 20:00 98.2 108 20 124/95 94 03/20/16 20:00 108 03/20/16 16:00 99.5 98 16 113/62 97 03/20/16 12:00 98.1 102 20 118/61 95 I/O 03/20/16 03/20/16 03/20/16 03/21/16 03/21/16 03/21/16 07:00 15:00 23:00 07:00 15:00 23:00 Intake Total 200 ml 480 ml 360 ml Output Total 1000 ml Balance 200 ml -520 ml 360 ml Intake Oral 200 ml 480 ml 360 ml IV Total 0 ml Output Urine Total 1000 ml # Voids 1 10 # Bowel Movements 1 Result Diagram: 03/20/16 0407 03/20/16 0407 Other Results Date/Time Procedure Status Source Growth 03/19/16 16:00 Urine Culture - Final Complete Urine Clean Catch 10-50,000 CFU/ML MIXED PANKAJ... ROS General: No: Fatigue, Weakness, Other HEENT: No: Sore Throat, Dysphagia Cardiac: Edema, No: Chest Pain, Palpitations, Other Pulmonary: SOB, No: Cough, Wheezing, Other GI: No: Abdominal Pain, BM, Diarrhea, N/V /MAIL CENSOR: No: Dysuria, Urgency Neuro/MS: No: Lightheaded, Confusion Psych: No: Anxiety, Depression Skin: No: Itching, Rash Physical Exam Physical Exam GENERAL: This is a well-nourished, well-developed patient, in no apparent distress. SKIN: No rashes, ecchymoses or lesions. Cool and dry. HEAD: Atraumatic. Normocephalic. No temporal or scalp tenderness. EYES: Pupils equal round and reactive. Extraocular motions intact. No scleral icterus. No injection or drainage. ENT: Nose without bleeding, purulent drainage or septal hematoma. Throat without erythema, tonsillar hypertrophy or exudate. Uvula midline. Airway patent. NECK: Trachea midline. No JVD or lymphadenopathy. Supple, nontender, no meningeal signs. CARDIOVASCULAR: Regular rate and rhythm without murmurs, gallops, or rubs. Patient wearing LifeVest. RESPIRATORY: Breath sounds noted with faint bibasilar rales GASTROINTESTINAL: Abdomen soft, non-tender, nondistended. No hepato-splenomegaly , or palpable masses. No guarding. MUSCULOSKELETAL: Extremities without clubbing, cyanosis. Has ankle edema, trace , pedal pulses 2+. No joint tenderness, effusion, or edema noted. No calf tenderness. Negative Homans sign bilaterally. NEUROLOGICAL: Awake and alert. Cranial nerves II through XII intact. Motor and sensory grossly within normal limits. Five out of 5 muscle strength in all muscle groups. Normal speech. Urinary Catheter: No Vascular Central Line Catheter: No A/P Diagnosis: (1) SOB (shortness of breath) (2) Congestive heart failure (3) UTI (urinary tract infection) (4) Hyperlipidemia (5) DM (diabetes mellitus) (6) ACS (acute coronary syndrome) (7) Hx of non-ST elevation myocardial infarction (NSTEMI) (8) Cardiomyopathy (9) History of placement of stent in LAD coronary artery (10) HX: breast cancer Assessment and Plan 75-year-old female patient with recent admission in January for chest pain, was found positive for non-STEMI, CHF. Underwent PCI with stent to mid LAD 2015. Was found with EF of 15%, was ordered a Life vest. Pt. admitted for acute on chronic CHF exacerbation: -Continuous cardiac telemetry -Continue with Lasix 40 mg IV twice a day -Monitor intake and output -Continue Aldactone Consult Dr. Winn-input appreciated, recommends to continue with IV diuresing and repeat echo. Pt. started on Entresto -Echo pending Serial cardiac enzymes done, negative Continue Effient, aspirin, Coreg -Continue with LifeVest UTI -continue antibiotics, follow cultures Hypertension, stable Continue with home medications Type 2 diabetes, stable -Accu-Cheks before meals and at bedtime with insulin therapy as needed Continue Amaryl History of breast cancer, on remission, takes Femara. Follows up regularly with Dr. Deveras -Continue with Femara Hyperlipidemia Continue with home meds Heparin for DVT prophylaxis Overall improved, will wait for Dr. Winn to re-evaluate CM to check if insurance covers entresto, resume HHC if pt agreeable. D/W RN D/W Dr. Vann D/W pt This patient was seen by myself and Dr. Vann, this note is written on his behalf Problem Qualifiers (1) Congestive heart failure: Qualified Code: I50.23 - Acute on chronic systolic congestive heart failure (2) UTI (urinary tract infection): Qualified Code: N39.0 - Urinary tract infection without hematuria, site unspecified (3) Hyperlipidemia: Qualified Code: E78.5 - Hyperlipidemia, unspecified hyperlipidemia type (4) DM (diabetes mellitus): Qualified Code: E11.8 - Type 2 diabetes mellitus with complication, without long-term current use of insulin (5) Cardiomyopathy: Qualified Code: I42.9 - Cardiomyopathy, unspecified type Bebe Acosta Mar 21, 2016 11:43
[2016-03-21 12:00] VITALS: BP 103/63; PULSE 90; RESP 16; TEMP 95; O2SAT 94
--- NOTE | 2016-03-21 13:30 | HHI.FF ---
Face to Face Verification Diagnosis: (1) Hx of non-ST elevation myocardial infarction (NSTEMI) (2) Cardiomyopathy (3) ACS (acute coronary syndrome) (4) History of placement of stent in LAD coronary artery (5) HX: breast cancer (6) SOB (shortness of breath) (7) UTI (urinary tract infection) (8) Congestive heart failure (9) Hyperlipidemia (10) Breast CA (11) DM (diabetes mellitus) Home Health Nursing Order: Medical education Signs/symptoms of disease process Diabetic education Medication education-adverse effect Nursing assessment with vital signs Client Professional Order: To Evaluate: Support services I have seen patient Maryana Alcantar on 03/21/16. My clinical findings support the need for the requested home health care services because: Patient has SOB I certify that my clinical findings support that this patient is homebound because: Poor cardiac reserve Bebe Acosta Mar 21, 2016 13:30
--- NOTE | 2016-03-21 15:51 | PD.CARD.PN ---
Subjective Subjective Remarks no overnight events no complaints Objective Medications Current Medications Medications (Trade) Dose Ordered Sig/Viry Route Start Time Stop Time Status Last Admin (NS Flush) 2 ml UNSCH PRN FLUSH 03/19/16 18:45 (NS Flush) 2 ml BID FLUSH 03/19/16 21:00 03/21/16 08:53 (Zofran Inj) 4 mg Q6H PRN IVP 03/19/16 18:45 (Narcan Inj) 0.4 mg UNSCH PRN IV 03/19/16 18:45 (Aspirin Chew) 81 mg HS CHEW 03/19/16 21:00 03/20/16 20:56 (Coreg) 3.125 mg Q12HR PO 03/19/16 21:00 03/21/16 08:56 (Amaryl) 2 mg BID PO 03/19/16 21:00 03/21/16 08:56 (Effient) 10 mg DAILY PO 03/20/16 09:00 03/21/16 08:58 (Aldactone) 25 mg DAILY PO 03/20/16 09:00 03/21/16 08:56 Patient Own Medication PT OWN MED: LETROZ... DAILY PO 03/20/16 09:00 Hold (Pravachol) 80 mg HS PO 03/19/16 21:00 03/20/16 20:56 (Heparin Inj) 5,000 units Q12HR SQ 03/19/16 21:00 03/21/16 08:56 (Lasix Inj) 40 mg BID@09,18 IV PUSH 03/19/16 19:00 03/21/16 08:53 (Entresto 24-26 Mg) 1 tab BID PO 03/20/16 13:30 03/21/16 08:58 (D50w (Vial) Inj) 25 ml UNSCH PRN IV PUSH 03/20/16 17:00 (Glucagon Inj) 1 mg UNSCH PRN OTHER 03/20/16 17:00 (Benadryl) 25 mg HS PRN PO 03/20/16 19:45 03/20/16 20:56 Vital Signs / I&O Vital Signs Date Time Temp Pulse Resp B/P Pulse Ox O2 Delivery O2 Flow Rate FiO2 03/21/16 12:00 95.0 90 16 103/63 94 03/21/16 08:00 98.1 96 17 120/66 93 03/21/16 04:00 97.4 100 18 113/70 93 03/20/16 22:45 97.7 88 18 108/64 94 03/20/16 20:00 98.2 108 20 124/95 94 03/20/16 20:00 108 03/20/16 16:00 99.5 98 16 113/62 97 I/O 03/20/16 03/20/16 03/20/16 03/21/16 03/21/16 03/21/16 07:00 15:00 23:00 07:00 15:00 23:00 Intake Total 200 ml 480 ml 360 ml Output Total 1000 ml Balance 200 ml -520 ml 360 ml Intake Oral 200 ml 480 ml 360 ml IV Total 0 ml Output Urine Total 1000 ml # Voids 1 10 # Bowel Movements 1 Physical Exam GENERAL: Well-nourished, well-developed patient. SKIN: Warm and dry. HEAD: Normocephalic. EYES: No scleral icterus. No injection or drainage. NECK: Supple, trachea midline. No JVD or lymphadenopathy. CARDIOVASCULAR: Regular rate and rhythm without murmurs, gallops, or rubs. RESPIRATORY: Breath sounds equal bilaterally. No accessory muscle use. GASTROINTESTINAL: Abdomen soft, non-tender, nondistended. EXTREMITIES: No cyanosis, or edema. NEUROLOGICAL: Awake, alert, and oriented x 3. Non-focal. Assessment and Plan Problem List: (1) Cardiomyopathy Assessment and Plan: Acute on chronic systolic heart failure Much improved denies SOB, chest pain, PND, Leg edema Preliminary Echo report shows unchanged LV systolic dysfunction ~15% EF. Stable from cardiac standpoint to d/c Home Cont ENTRESTO as well as Coreg, Aldactone, DAPT, and statin Discharge on on Lasix 40mg PO BID F/U with me when d/c. She will be schedule for AICD placement as outpatient (2) SOB (shortness of breath) (3) Congestive heart failure Problem Qualifiers (1) Cardiomyopathy: Qualified Code: I25.5 - Ischemic cardiomyopathy (2) Congestive heart failure: Qualified Code: I50.23 - Acute on chronic systolic congestive heart failure Ramana Godoy MD Mar 21, 2016 15:51
[2016-03-21 16:00] VITALS: BP 90/53; PULSE 93; RESP 18; TEMP 98.2; O2SAT 93
--- NOTE | 2016-03-21 17:31 | EC ---
Study Study Date:03/21/2016 STUDY CONCLUSIONS SUMMARY - Left ventricle: The cavity size was moderately dilated. Systolic function was severely reduced. The estimated ejection fraction was in the range of 15% to 20%. Diffuse hypokinesis. - Aortic valve: Trace regurgitation. Valve area: 1.07cm^2(VTI). Valve area: 1.26cm^2 (Vmax). - Mitral valve: Mildly calcified annulus. Mild to moderate regurgitation. - Pericardium, extracardiac: A trivial pericardial effusion was identified. If LV function is below 40, please consider prescribing an ACEI or ARB or document rationale for non-use. PROCEDURE DATA STUDY STATUS: Elective. Procedure: Transthoracic echocardiography. Image quality was good. Scanning was performed from the parasternal, apical, and subcostal acoustic windows. Study completion: The patient tolerated the procedure well. Transthoracic echocardiography. M-mode, complete 2D, complete spectral Doppler, and color Doppler. Height: Height: 64in. Patient status: Inpatient. CARDIAC ANATOMY LEFT VENTRICLE: The cavity size was moderately dilated. Systolic function was severely reduced. The estimated ejection fraction was in the range of 15% to 20%. Diffuse hypokinesis. AORTIC VALVE: The valve appears to be grossly normal. Doppler: There was no stenosis. Trace regurgitation. Valve area: 1.07cm^2(VTI). Valve area: 1.26cm^2 (Vmax). Mean gradient: 4mm Hg (S). MITRAL VALVE: Mildly calcified annulus. Doppler: There was no evidence for stenosis. Mild to moderate regurgitation. LEFT ATRIUM: The atrium was normal in size. PULMONIC VALVE: Not well visualized. Doppler: There was no evidence for stenosis. Trace regurgitation. TRICUSPID VALVE: The valve appears to be grossly normal. Doppler: There was no evidence for stenosis. Trace to mild regurgitation. PERICARDIUM: A trivial pericardial effusion was identified. BASIC MEASUREMENTS ADULT NORMAL Left ventricle LV internal dimension, ED, chordal level, *61.5 mm 43-52 PLAX LV internal dimension, ES, chordal level, *57.3 mm 23-38 PLAX Fractional shortening, chordal level, PLAX *7 % >29 LV posterior wall thickness, ED 11.5 mm IVS/LVPW ratio, ED 0.87 <1.3 Ventricular septum Septal thickness, ED 9.99 mm Aortic valve Leaflet separation 18 mm 15-26 Aorta Root diameter, ED 28 mm Left atrium Anterior-posterior dimension 34 mm BASIC MEASUREMENTS ADULT NORMAL Aortic valve Leaflet separation 18 mm 15-26 DOPPLER MEASUREMENTS ADULT NORMAL Main pulmonary artery Pressure, S 21 mm Hg =30 Aortic valve Peak velocity, S 136 cm/s Mean velocity, S 92.3 cm/s VTI, S 23.4 cm Mean gradient, S 4 mm Hg Valve area, VTI 1.07 cm^2 Valve area, Vmax 1.26 cm^2 Mitral valve Peak E-wave velocity 65.2 cm/s Peak A-wave velocity 123 cm/s Deceleration time *67 ms 150-230 Peak E/A ratio 0.5 Tricuspid valve Regurgitant peak velocity 216 cm/s Peak RV-RA gradient, S 19 mm Hg Systemic veins Estimated CVP 5 mm Hg Right ventricle RV pressure, S 24 mm Hg <30 Pulmonic valve Peak velocity, S 82.9 cm/s LEGEND: Mean values are shown as u=mean value. Asterisk (*) parra values outside specified normal range. Prepared and signed by Ezekiel Baum [id number]
[2016-03-21 20:00] VITALS: BP 97/55; PULSE 98; RESP 17; TEMP 97; O2SAT 96
[2016-03-21] MEDS: ASPIRIN 81 MG CHEW TAB CHEW SCH (22:03)
[2016-03-21] MEDS: PRAVASTATIN SOD 80 MG TAB PO SCH (22:03)
[2016-03-21] MEDS: diphenhydrAMINE HCL 25 MG CAP PO PRN (22:11)
[2016-03-22] VITALS: BP 105/51; PULSE 99; RESP 17; TEMP 97.1; O2SAT 96
[2016-03-22 04:00] VITALS: BP 106/57; PULSE 93; RESP 17; TEMP 97.8; O2SAT 95
[2016-03-22] MEDS: INSULIN ASPART SUPPLEMENTAL SCALE SQ SCH ×2 (06:10→11:00)
[2016-03-22 08:29] VITALS: BP 88/53; PULSE 78; RESP 18; TEMP 98.4; O2SAT 93
[2016-03-22] MEDS: FUROSEMIDE 40 MG/4 ML VIAL IV PUSH SCH (08:34)
[2016-03-22] MEDS: SODIUM CHLORIDE 0.9% FLUSH 5 ML FLUSH FLUSH SCH (08:34)
[2016-03-22] MEDS: CARVEDILOL 3.125 MG TAB PO SCH (08:35)
[2016-03-22] MEDS: SPIRONOLACTONE 25 MG TAB PO SCH (08:35)
[2016-03-22] MEDS: GLIMEPIRIDE 2 MG TAB PO SCH (08:35)
[2016-03-22] MEDS: SACUBITRIL/VALSARTAN 24 MG-26 MG TAB PO SCH (08:35)
[2016-03-22] MEDS: PRASUGREL 10 MG TAB PO SCH (08:35)
[2016-03-22] MEDS: HEPARIN SODIUM - SQ 10,000 UNITS/ML VIAL SQ SCH (09:00)
--- NOTE | 2016-03-22 11:33 | HHI.PR ---
Subjective Remarks sitting up in chair no sob with activity no cp no palpitations "I feel great, I"m ready to go home" explained she has to wait for echo to be done diuresing well [place] for 12 point system is unremarkale Objective Objective Results - Vital Signs Date Time Temp Pulse Resp B/P Pulse Ox O2 Delivery O2 Flow Rate FiO2 03/22/16 08:29 98.4 78 18 88/53 93 03/22/16 04:00 97.8 93 17 106/57 95 03/22/16 00:00 97.1 99 17 105/51 96 03/21/16 20:00 97.0 98 17 97/55 96 03/21/16 16:00 98.2 93 18 90/53 93 03/21/16 12:00 95.0 90 16 103/63 94 I/O 03/21/16 03/21/16 03/21/16 03/22/16 03/22/16 03/22/16 07:00 15:00 23:00 07:00 15:00 23:00 Intake Total 360 ml 240 ml 120 ml Balance 360 ml 240 ml 120 ml Intake Oral 360 ml 240 ml 120 ml # Voids 10 3 2 # Bowel Movements 1 Result Diagram: 03/20/16 0407 03/20/16 0407 Other Results Date/Time Procedure Status Source Growth 03/19/16 16:00 Urine Culture - Final Complete Urine Clean Catch 10-50,000 CFU/ML MIXED PANKAJ... Physical Exam Physical Exam GENERAL: This is a well-nourished, well-developed patient, in no apparent distress. SKIN: No rashes, ecchymoses or lesions. Cool and dry. HEAD: Atraumatic. Normocephalic. No temporal or scalp tenderness. EYES: No scleral icterus. No injection or drainage. ENT: Airway patent. NECK: Trachea midline. No JVD or lymphadenopathy. Supple, nontender, no meningeal signs. CARDIOVASCULAR: Regular rate and rhythm without murmurs, gallops, or rubs. Patient wearing LifeVest. RESPIRATORY: Breath sounds noted with faint bibasilar rales GASTROINTESTINAL: Abdomen soft, non-tender, nondistended. No hepato-splenomegaly , or palpable masses. No guarding. MUSCULOSKELETAL: Extremities without clubbing, cyanosis. Has trace ankle edema , pedal pulses 2+. No joint tenderness, effusion, or edema noted. No calf tenderness. Negative Homans sign bilaterally. NEUROLOGICAL: Awake and alert. Cranial nerves II through XII intact. Motor and sensory grossly within normal limits. Five out of 5 muscle strength in all muscle groups. Normal speech. A/P Assessment and Plan (1) SOB (shortness of breath) (2) Congestive heart failure (3) UTI (urinary tract infection) (4) Hyperlipidemia (5) DM (diabetes mellitus) (6) ACS (acute coronary syndrome) (7) Hx of non-ST elevation myocardial infarction (NSTEMI) (8) Cardiomyopathy (9) History of placement of stent in LAD coronary artery (10) HX: breast cancer Plan 75-year-old female patient with recent admission in January for chest pain, was found positive for non-STEMI, CHF. Underwent PCI with stent to mid LAD 2015. Was found with EF of 15%, was ordered a Life vest. Pt. admitted for acute on chronic CHF exacerbation: -on Continuous cardiac telemetry -Continue with Lasix 40 mg IV twice a day. will be switch to po on dc -Monitor intake and output -Continue Aldactone Consult Dr. Winn-input appreciated, recommends to continue with diuresing . report of echo reviewd . Pt. started on Entresto -Echo reviewed Serial cardiac enzymes done, negative Continue Effient, aspirin, Coreg -Continue with LifeVest UTI -continue antibiotics,rep-ort of cultures reivwed Hypertension, stable Continue with home medications Type 2 diabetes, stable -Accu-Cheks before meals and at bedtime with insulin therapy as needed Continue Amaryl History of breast cancer, on remission, takes Femara. Follows up regularly with Dr. Rodas -Continue with Femara Hyperlipidemia Continue with home meds Heparin for DVT prophylaxis Overall good condtiton resume [facility] if pt agreeable. D/W RN D/W pt Raquel Vann MD Mar 22, 2016 11:33
[2016-03-22] MEDS ORDERED: FURO10IN PO (11:38)
[2016-03-22] MEDS ORDERED: SACU1TAB PO (11:38)
[2016-03-22 12:08] VITALS: BP 96/56; PULSE 77; RESP 18; TEMP 97.8; O2SAT 94
--- NOTE | 2016-03-22 12:52 | PD.CARD.PN ---
Subjective Subjective Remarks The patient denies chest pain, shortness of breath, GI symptoms or bleeding. Telemetry reveals sinus rhythm. Objective Medications Reviewed Vital Signs / I&O Vital Signs Date Time Temp Pulse Resp B/P Pulse Ox O2 Delivery O2 Flow Rate FiO2 03/22/16 12:08 97.8 77 18 96/56 94 03/22/16 08:29 98.4 78 18 88/53 93 03/22/16 04:00 97.8 93 17 106/57 95 03/22/16 00:00 97.1 99 17 105/51 96 03/21/16 20:00 97.0 98 17 97/55 96 03/21/16 16:00 98.2 93 18 90/53 93 I/O 03/21/16 03/21/16 03/21/16 03/22/16 03/22/16 03/22/16 07:00 15:00 23:00 07:00 15:00 23:00 Intake Total 360 ml 240 ml 120 ml Balance 360 ml 240 ml 120 ml Intake Oral 360 ml 240 ml 120 ml # Voids 10 3 2 # Bowel Movements 1 Physical Exam GENERAL: Well-nourished, well-developed patient in no apparent distress. SKIN: Warm and dry. NECK: JVD normal - less than or equal to 5 cm H20. CARDIOVASCULAR: Regular rate and rhythm without murmurs, gallops, or rubs. RESPIRATORY: Normal breath sounds - equal bilaterally. No accessory muscle use. No wheezes, rales or rubs. PERIPHERY: No cyanosis, or edema. Laboratory Reviewed Imaging Reviewed Assessment and Plan Assessment and Plan Problems: Acute on chronic systolic CHF CADstatus post stent to the LAD Hypertension Diabetes Hyperlipidemia Recommendations: The patient will be discharged today on the present medical regimen. She understands she cannot stop her dual antiplatelet agents because of risk of stent thrombosis and heart attack. She will follow-up with Dr. Winn. She has a defibrillator vest on. Hayden Dominguez MD Mar 22, 2016 12:52
--- NOTE | 2016-03-24 15:18 | HHI.DS ---
Discharge Summary Admission Date Mar 19, 2016 at 18:48 Discharge Date: Mar 22, 2016 Admitting Diagnosis shortness of breath, urinary tract infection (1) SOB (shortness of breath) (2) Congestive heart failure (3) UTI (urinary tract infection) (4) Hyperlipidemia (5) DM (diabetes mellitus) (6) ACS (acute coronary syndrome) (7) Hx of non-ST elevation myocardial infarction (NSTEMI) (8) Cardiomyopathy (9) History of placement of stent in LAD coronary artery (10) HX: breast cancer CBC/BMP: 03/20/16 0407 03/20/16 0407 Imaging Last Impressions Chest X-Ray 03/19/16 1322 Signed Impressions: Service Date/Time: Saturday, March 19, 2016 13:57 - CONCLUSION: 1. Chronic interstitial changes. Stable compared to previous examination. Davis Geronimo MD CT Angiography 03/19/16 0000 Signed Impressions: Service Date/Time: Saturday, March 19, 2016 17:48 - CONCLUSION: No evidence of pulmonary embolism. Small bilateral pleural effusions. Mildly prominent AP window lymph node. Lizandro Nayak MD Hospital Course This is a 75-year-old female patient with past medical history which includes breast cancer status post mastectomy chemo and radiation 16 years ago, thyroid nodularities s/p biopsy-benign, hyperlipidemia and diabetes mellitus type 2. Patient was recently admitted in January for chest pain, was found positive for non-STEMI, CHF. Underwent PCI with stent to mid LAD 01/2016. Was found with EF of 15%, was ordered a Life vest. Patient was discharged home in stable condition with instructions to follow up with cardiology for evaluation of LV function and further plans for cardiomyopathy. According to the patient, she has been mildly short of breath with activity however since yesterday she has noted increased dyspnea with minimal exertion. States that she was gasping for air. No chest pain, no palpitations. Has noted increased ankle swelling. Has been compliant with taking diuretics. Patient denies any fever, no chills, no recent illnesses. No abdominal pain, no nausea vomiting or diarrhea. Patient was evaluated in the emergency room, CBC was remarkable for hemoglobin 10.8 and hematocrit of 33.6. BMP was unremarkable, blood glucose was 182. Troponin mildly elevated 0.07. B natruretic peptide 466. UA was positive for leukocyte esterase and WBC. No urinary symptoms. Chest x-ray showed chronic interstitial changes that were stable compared to previous exam. CTA was completed, pulmonary embolism was ruled out. She was noted with small bilateral pleural effusions, mildly prominent AP window lymph node. Cardiology was called from the emergency room and informed of patient admission. Patient received Lasix and has been diuresing well. Indications feeling slightly improved. She was started on Rocephin for UTI. Patient is admitted for further evaluation and treatment. (1) SOB (shortness of breath) (2) Congestive heart failure (3) UTI (urinary tract infection) (4) Hyperlipidemia (5) DM (diabetes mellitus) (6) ACS (acute coronary syndrome) (7) Hx of non-ST elevation myocardial infarction (NSTEMI) (8) Cardiomyopathy (9) History of placement of stent in LAD coronary artery (10) HX: breast cancer During the course of the hospitalization, the following took place: 75-year-old female patient with recent admission in January for chest pain, was found positive for non-STEMI, CHF. Underwent PCI with stent to mid LAD 2015. Was found with EF of 15%, was ordered a Life vest. Pt. admitted for acute on chronic CHF exacerbation: -on Continuous cardiac telemetry -Put on Lasix 40 mg IV twice a day, then changed to PO on discharge -Monitored intake and output -Continued Aldactone Consulted Dr. Winn-input appreciated, recommended to continue with diuresing . report of echo reviewed-EF 15 to 20% . Pt. started on Entresto Serial cardiac enzymes done, negative Continued Effient, aspirin, Coreg -Continued with LifeVest UTI- -continue antibiotics, culture reviewed Hypertension, stable Continued with home medications Type 2 diabetes, stable -Accu-Cheks before meals and at bedtime with insulin therapy as needed Continue Amaryl History of breast cancer, on remission, takes Femara. Follows up regularly with Dr. Rodas -Continued with Femara Hyperlipidemia Continued with home meds Heparin for DVT prophylaxis Pt.'s symptoms improved, cleared for discharge CM consult to resume [facility] Pt. discharged in stable condition Pt Condition on Discharge: Good Discharge Disposition: Disch w/ Home Health Serv Discharge Instructions DIET: Follow Instructions for: Heart Healthy Diet, Diabetic Diet Activities you can perform: Weight Bearing as Ese Follow up Referrals: Cardiology - 2 Weeks PCP Follow-up - 1 Week New Medications: Furosemide Inj (Furosemide Inj) 10 Mg/Ml Inj 40 MG PO BID@,18 chf #60 INJECTION Sacubitril-Valsartan (Entresto) 24-26 Mg Tab 1 TAB PO BID chf #60 TAB Continued Medications: Aspirin (Aspirin) 81 Mg Chew 81 MG CHEW HS Ref 0 TAB Carvedilol (Coreg) 3.125 Mg Tab 3.125 MG PO Q12HR #60 Ref 0 TAB Glimepiride (Glimepiride) 2 Mg Tab 2 MG PO BID Blood Sugar Management Ref 0 TAB Letrozole (Femara) 2.5 Mg Tab 2.5 MG PO DAILY Metformin (Metformin) 500 Mg Tab 500 MG PO BIDPC Blood Sugar Management Ref 0 TAB Prasugrel (Effient) 10 Mg Tab 10 MG PO DAILY heart #31 TAB Simvastatin (Zocor) 40 Mg Tab 40 MG PO HS Cholesterol Management #30 Ref 0 TAB Spironolactone (Spironolactone) 25 Mg Tab 25 MG PO DAILY #30 Ref 0 TAB Bebe Acosta Mar 24, 2016 15:18
== END 2016-03-22 14:08 | disposition home health service (06) | DRG 292 ==
LOC: NEPE 12:30 → NEDA 18:48 → NEDH 03-20 08:42 → N05B 03-20 22:41
PROVIDERS: ADMIT Specialist; ATTEND Specialist
DX: I50.23 Acute on chronic systolic (congestive) heart failure (principal); N39.0 Urinary tract infection, site not specified; E11.8 Type 2 diabetes mellitus with unspecified complications; I25.10 Atherosclerotic heart disease of native coronary artery without angina pectoris; I25.5 Ischemic cardiomyopathy; I25.2 Old myocardial infarction; I10 Essential (primary) hypertension; E78.5 Hyperlipidemia, unspecified; Z79.84 Long term (current) use of oral hypoglycemic drugs; Z92.21 Personal history of antineoplastic chemotherapy; Z88.0 Allergy status to penicillin; Z95.5 Presence of coronary angioplasty implant and graft; Z85.3 Personal history of malignant neoplasm of breast; Z90.10 Acquired absence of unspecified breast and nipple; Z92.3 Personal history of irradiation
CPT/HCPCS: 71010; 71275; 80048; 81001; 82550; 82948; 83880; 84484; 85025; 85379; 85610; 85730; 87086; 93005; 93306; 96365; J0696; J1644; J1815; J1940; Q9967

== ENCOUNTER 2016-04-16 12:32 | Day surgery (SDC) | payer MEDICARE ==
[2016-04-16] VITALS (7 sets, daily range): BP systolic 80–132; BP diastolic 46–88; PULSE 75–105; RESP 16–18; TEMP 97.9–98.7; O2SAT 94–98
[~2016-04-16] VITALS: Ht 162.6 cm; Wt 80.8 kg
[~2016-04-16 12:32] MED LIST changes: +ASPI81CH CHEW; -Aspirin Chew PO; +FURO10IN PO; -FURO1TAB60 PO; -LISI2.5T3 PO; +SACU1TAB PO; -SIMV5TAB3 PO; +SPIR25TA PO; +ZOCO40TA PO
[2016-04-16] MEDS ORDERED: NS 1000 ML IV SCH (13:00)
[2016-04-16] MEDS ORDERED: VANCOMYCIN 1000 MG/NS 250 ML IV SCH ×2 (13:15)
[2016-04-16] MEDS ORDERED: LACTATED RINGER'S 1000 ML IV SCH (13:15)
[2016-04-16] MEDS ORDERED: INSULIN HUMAN REGULAR 1,000 UNITS/10 ML VIAL SQ PRN (13:15)
[2016-04-16] MEDS ORDERED: SODIUM CHLORID 0.9% 500 ML IV SCH (13:15)
[2016-04-16] MEDS ORDERED: CHLORHEXIDINE GLUCONATE 2 % 1 PACK (2 CLOTHS) TOP SCH (13:15)
[2016-04-16] MEDS ORDERED: METOPROLOL TARTRATE 25 MG TAB PO PRN (13:15)
[2016-04-16] MEDS ORDERED: POVIDONE IODINE 5% (ANTISEPSIS KIT) 4 APPLICATIONS EACH NARE SCH (13:15)
[2016-04-16] MEDS ORDERED: LISI2.5T3 PO (13:17)
[2016-04-16 13:33] LABS: AUTOMATED NEUTROPHIL # 5.1 TH/MM3 (1.8-7.7); BASOPHIL # 0.1 TH/MM3 (0-0.2); BASOPHIL % 0.7 % (0.0-2.0); EOSINOPHIL # 0.1 TH/MM3 (0-0.4); EOSINOPHIL % 1.2 % (0.0-4.0); HEMATOCRIT 34.9 % (35.0-46.0); HEMO FLAGS DIFF FINAL; LYMPH % 28.4 % (9.0-44.0); LYMPHOCYTE # 2.3 TH/MM3 (1.0-4.8); MEAN CELL VOLUME 77.8 FL (80.0-100.0); MEAN CORPUSCULAR HEMOGLOBIN 25.6 PG (27.0-34.0); MEAN CORPUSCULAR HGB CONC 32.8 % (32.0-36.0); MONO % 7.7 % (0.0-8.0); PLATELET COUNT 181 TH/MM3 (150-450); RED BLOOD COUNT 4.49 MIL/MM3 (4.00-5.30); RED CELL DISTRIBUTION WIDTH 16.3 % (11.6-17.2); WHITE BLOOD COUNT 8.2 TH/MM3 (4.0-11.0)
[2016-04-16 13:40] LABS: APTT (PATIENT) 33.6 SEC (24.3-30.1); INTERNATIONAL NORMALIZED RATIO 1.1 RATIO; PROTHROMBIN TIME - PATIENT 11.9 SEC (9.8-11.6)
[2016-04-16 13:54] LABS: BICARBONATE 30.5 MEQ/L (21.0-32.0); POTASSIUM 4.6 MEQ/L (3.5-5.1)
[2016-04-16] MEDS ORDERED: PROPOFOL 200 MG/20 ML AMP IV ONE (14:40)
[2016-04-16] MEDS ORDERED: KETAMINE HCL 500 MG/5 ML VIAL ONE (14:43)
[2016-04-16] MEDS ORDERED: LIDOCAINE HCL 2% 50 ML VIAL ONE (14:53)
[2016-04-16] MEDS ORDERED: ZOLPIDEM TARTRATE 5 MG TAB PO PRN (15:45)
[2016-04-16] MEDS ORDERED: traMADol HCL 50 MG TAB PO PRN (15:45)
[2016-04-16] MEDS: INSULIN NovoLIN REGULAR SUPPLEMENTAL SCALE SQ SCH ×2 (16:00→21:32)
[2016-04-16] MEDS ORDERED: DEXTROSE 50% IN WATER 50 ML VIAL(D50) IV PUSH PRN (16:00)
[2016-04-16] MEDS ORDERED: GLUCAGON 1 MG/ML VIAL OTHER PRN (16:00)
[2016-04-16] MEDS ORDERED: fentaNYL CITRATE 250 MCG/5 ML AMP ONE (16:22)
[2016-04-16] MEDS ORDERED: MIDAZOLAM HCL 2 MG/2 ML VIAL ONE (16:22)
--- NOTE | 2016-04-16 16:54 | RADRPT ---
EXAM DATE/TIME: 04/16/2016 16:17 [place] COMPARISON: CHEST SINGLE AP, March 19, 2016, 13:57. INDICATIONS: Post op pacemaker placement. MEDICAL HISTORY: None. SURGICAL HISTORY: Pacemaker. ENCOUNTER: Initial ACUITY: 1 day PAIN SCORE: 0/10 LOCATION: Bilateral chest FINDINGS: Pacemaker is implanted on the left. There is no pneumothorax. Heart and pulmonary vascularity are n ormal. Surgical clips are seen in the right axilla. CONCLUSION: Pacemaker, negative for pneumothorax. Charlie Geronimo MD FACR on April 16, 2016 at 16:49 Board Certified Radiologist. This report was verified electronically.
[2016-04-16] MEDS: CARVEDILOL 3.125 MG TAB PO SCH (21:00)
[2016-04-16] MEDS: SACUBITRIL/VALSARTAN 24 MG-26 MG TAB PO SCH (21:00)
[2016-04-16] MEDS ORDERED: PRAVASTATIN SOD 80 MG TAB PO SCH (21:00)
[2016-04-16] MEDS ORDERED: ASPIRIN 81 MG CHEW TAB CHEW SCH (21:00)
[2016-04-16] MEDS: GLIMEPIRIDE 2 MG TAB PO SCH (22:20)
[2016-04-16 22:57] LABS: HEMATOCRIT 31.4 % (35.0-46.0); REVIEW FLAG FINAL
[2016-04-17] VITALS (14 sets, daily range): BP systolic 85–129; BP diastolic 53–62; PULSE 69–108; RESP 20–22; TEMP 98.5–98.7; O2SAT 97
[2016-04-17] MEDS ORDERED: VANCOMYCIN INJ 1,000 MG in SODIUM CHLOR 0.9% 250 ML INJ 250 ML IV ONE (03:45)
[2016-04-17] MEDS: INSULIN NovoLIN REGULAR SUPPLEMENTAL SCALE SQ SCH (06:05)
--- NOTE | 2016-04-17 08:40 | PD.CARD.PN ---
Subjective Subjective Remarks Denies pain, dyspnea. Objective Medications Item Value Date Time Lisinopril 2.5 mg 04/17/16899 (Prinivil) DAILY/PO Prasugrel 10 mg 04/17/16899 (Effient) DAILY/PO Spironolactone 25 mg 04/17/16899 (Aldactone) DAILY/PO Aspirin 81 mg 04/16/162099 (Aspirin Chew) HS/CHEW 04/16/162127 Carvedilol 3.125 mg 04/16/162099 (Coreg) Q12HR/PO Sacubitril/ 1 tab 04/16/162099 Valsartan BID/PO (Entresto 24-26 Mg) Pravastatin Sodium 80 mg 04/16/162099 (Pravachol) HS/PO 04/16/162127 Vital Signs / I&O Vital Signs Date Time Temp Pulse Resp B/P Pulse Ox O2 Delivery O2 Flow Rate FiO2 04/17/16 06:00 105 04/17/16 05:00 99 04/17/16 04:00 103 04/17/16 03:25 98.5 99 22 85/53 97 04/17/16 03:00 88 04/17/16 02:00 96 04/17/16 01:00 93 04/17/16 00:00 97 04/16/16 23:00 93 04/16/16 23:00 98.7 102 18 80/46 96 04/16/16 22:00 103 04/16/16 21:00 98 04/16/16 20:00 104 04/16/16 19:00 97.9 101 18 101/53 94 04/16/16 19:00 105 04/16/16 18:01 98.6 75 18 132/88 94 04/16/16 13:19 98.4 103 16 87/51 98 I/O 04/16/16 04/16/16 04/16/16 04/17/16 04/17/16 04/17/16 07:00 15:00 23:00 07:00 15:00 23:00 Intake Total 720 ml Output Total 500 ml Balance 220 ml Intake Oral 720 ml Output Urine Total 500 ml # Voids 3 # Bowel Movements 0 Physical Exam ICD site clean, dry, intact, no hematoma or tenderness Laboratory Laboratory Tests Test 04/16/16 04/16/16 13:15 22:38 White Blood Count 8.2 TH/MM3 Red Blood Count 4.49 MIL/MM3 Hemoglobin 11.5 GM/DL 10.3 GM/DL Hematocrit 34.9 % 31.4 % Mean Corpuscular Volume 77.8 FL Mean Corpuscular Hemoglobin 25.6 PG Mean Corpuscular Hemoglobin 32.8 % Concent Red Cell Distribution Width 16.3 % Platelet Count 181 TH/MM3 Mean Platelet Volume 10.5 FL Neutrophils (%) (Auto) 62.0 % Lymphocytes (%) (Auto) 28.4 % Monocytes (%) (Auto) 7.7 % Eosinophils (%) (Auto) 1.2 % Basophils (%) (Auto) 0.7 % Neutrophils # (Auto) 5.1 TH/MM3 Lymphocytes # (Auto) 2.3 TH/MM3 Monocytes # (Auto) 0.6 TH/MM3 Eosinophils # (Auto) 0.1 TH/MM3 Basophils # (Auto) 0.1 TH/MM3 CBC Comment DIFF FINAL Differential Comment Prothrombin Time 11.9 SEC Prothromb Time International 1.1 RATIO Ratio Activated Partial 33.6 SEC Thromboplast Time Sodium Level 138 MEQ/L Potassium Level 4.6 MEQ/L Chloride Level 101 MEQ/L Carbon Dioxide Level 30.5 MEQ/L Anion Gap 7 MEQ/L Blood Urea Nitrogen 28 MG/DL Creatinine 1.15 MG/DL Estimat Glomerular Filtration 46 ML/MIN Rate Random Glucose 192 MG/DL Calcium Level 9.4 MG/DL Assessment and Plan Problem List: (1) S/P implantation of automatic cardioverter/defibrillator (AICD) Assessment and Plan: Stable overnight. Post op CXR OK. ICD site OK. ICD re- interrogation shows stable, good pacing/defibrillatory parameters. To discharge home, same home medications plus Levaquin 500 mg qd for 5 days, f/u in 4 days to recheck incision and ICD. (2) Ischemic cardiomyopathy Assessment and Plan: Compensated. Stable. No CHF. To continue beta latha , DENNIS-I, Entresto. (3) Paroxysmal atrial fibrillation Assessment and Plan: Stable. Remains in NSR. Continue regular f/u with Dr. Winn. (4) CAD (coronary artery disease) Assessment and Plan: Stable. No recent angina. Cont Prasugrel, aspirin. Code Status full code Discussed Condition With patient Problem Qualifiers (1) CAD (coronary artery disease): Qualified Code: I25.10 - Coronary artery disease involving sycuan coronary artery of sycuan heart without angina pectoris Juan José Dillon MD Apr 17, 2016 08:40
[2016-04-17] MEDS ORDERED: LEVA500T PO (08:42)
[2016-04-17] MEDS: SPIRONOLACTONE 25 MG TAB PO SCH ×2 (08:49→10:26)
[2016-04-17] MEDS: PRASUGREL 10 MG TAB PO SCH ×2 (08:49→10:26)
[2016-04-17] MEDS: CARVEDILOL 3.125 MG TAB PO SCH ×2 (08:49→10:26)
[2016-04-17] MEDS ORDERED: LETROZOLE 2.5 MG PO SCH (09:00)
[2016-04-17] MEDS ORDERED: LISINOPRIL 5 MG TAB PO SCH (09:00)
[2016-04-17] MEDS: GLIMEPIRIDE 2 MG TAB PO SCH (10:27)
[2016-04-17] MEDS: SACUBITRIL/VALSARTAN 24 MG-26 MG TAB PO SCH (10:27)
--- NOTE | 2016-04-18 07:08 | EKG ---
Date Performed: 04/16/2016 Time Performed: 13:28:56 PTAGE: 75 years EKG: Sinus rhythm Possible septal infarct - age undetermined Lateral T wave changes may be due to myocardial ischemia Abnormal ECG PREVIOUS TRACING : 03/19/2016 21.41 Compared to prior tracing no significant change DOCTOR: Juarez Tsai Interpretating Date/Time 04/18/2016 07:05:43
--- NOTE | 2016-04-19 06:35 | MP ---
cc: MASOOD OSUNA GLENN H. M.D. DATE OF SURGERY: 04/16/2016 PROCEDURE Single chamber (with atrial sensing capability) AICD implantation via the left subclavian vein, AICD defibrillation threshold testing. OPERATIVE NOTES The patient was brought to the operating suite in a fasting state after having signed informed consent. The left upper chest was prepped and draped as per policy and anesthetized with 1% lidocaine. After administration of 10 cc of contrast through a left arm peripheral IV central venous access was obtained via the left subclavian vein and an 8-Syriac sheath placed. A transverse incision was made inferior to the left clavicle and using blunt dissection a subcutaneous pocket was formed down to the pectoralis fascia. A ventricular active fixation lead was introduced and its tip positioned in the right ventricular apex where a good current of injury, stimulation threshold (0.6 volts) and sensitivity (10.0 mV) were demonstrated. This lead was secured into place using 2-0 silk ties down to the pectoralis fascia. Atrial sensing was measured at 3.4 mV. The leads were then connected to the AICD generator which is a BiotroniEVRST Itrevia device. The leads and the generator were placed back into the subcutaneous pocket which was closed using 3-0 Vicryl interrupted stitches in two layers to close the subcutaneous tissue and then 4-0 Monocryl running stitch to close the subcuticular tissue. Overlapping Steri-Strips and a dressing were applied. Testing of the device was done. Ventricular fibrillation was induced. The patient was successfully rescued with a 20 joule shock after a charge time of 4.4 seconds at a shock impedance of 73 ohms. There were no apparent immediate complications. A portable chest x-ray is pending at the time of this dictation. CONCLUSIONS 1. Successful single chamber (with atrial sensing capability) AICD implantation via the left subclavian vein using a Biotronik Itrevia AICD generator. 2. Status post AICD defibrillation threshold testing. MD TOMMY Dunn/MYRNA /3:41 PM /6:29 AM [facility]
== END 2016-04-17 10:30 | disposition home or self-care (01) ==
LOC: HDOC 12:32 → HDIC 12:33 → HDOC 14:06 → HCPC 14:07 → UNDOADMOB 14:07 → HDOC 04-17 10:30 → UNDODISOB 04-17 10:30 → HDOC 04-17 14:10
PROVIDERS: ATTEND Internal Medicine Cardiovascular Disease
DX: I50.9 Heart failure, unspecified (principal); I48.92 Unspecified atrial flutter; R06.02 Shortness of breath; E11.9 Type 2 diabetes mellitus without complications; Z79.82 Long term (current) use of aspirin; Z79.84 Long term (current) use of oral hypoglycemic drugs; Z90.11 Acquired absence of right breast and nipple
CPT/HCPCS: 33249; 71010; 80048; 82948; 85014; 85018; 85025; 85610; 85730; 93005; 93641; C1722; C1777; J2250; J3010; J3370; J7050

== ENCOUNTER 2017-06-01 12:45 | Day surgery (SDC) | payer MEDICARE ==
[~2017-06-01 12:45] MED LIST changes: +ASPI-516 CHEW; -ASPI81CH CHEW; +LEVA500T PO; +LISI2.5T3 PO
[2017-06-01 14:45] VITALS: BP 167/77; PULSE 77; RESP 20; TEMP 98.5; O2SAT 96
[2017-06-01 15:00] VITALS: BP 141/76; PULSE 73; RESP 20; O2SAT 95
[2017-06-01] MEDS ORDERED: LIDOCAINE HCL 1% 20 ML VIAL ONE (15:55)
--- NOTE | 2017-06-01 16:23 | RADRPT ---
EXAM DATE/TIME: 06/01/2017 13:33 [place] COMPARISON: No previous studies available for comparison. INDICATIONS : Left thyroid nodules MEDICAL HISTORY : Carcinoma, breast. Hypertension. Hypercholesterolemia. SURGICAL HISTORY : Pacemaker. Mastectomy, right. ENCOUNTER: Subsequent ACUITY: 1 day PAIN SCORE: 0/10 LOCATION: Left neck. ORGAN: Left thyroid lobe SPECIMENS: Six fine needle aspirate(s) submitted for pathologic evaluation. DEVICE: 22 gauge needle Post procedure scanning reveals no hematoma or other complication. The possibility does exist that the tissue obtained will be non-diagnostic. If the sample is non-l[place] gnostic a repeat biopsy or surgical biopsy may need to be performed. TECHNIQUE: 1. Ultrasound guidance for needle biopsy. 2. Needle biopsy. The risks, benefits and alternatives to the procedure were explained and verbal and written consent w as obtained. The site was prepped in sterile fashion. Full sterile technique was used, including ca p, mask, sterile gloves and gown and a large sterile sheet. Hand hygiene and 2% chlorhexidine and/or betadine/alcohol prep was utilized per protocol for cutaneous antisepsis. The skin and subcutaneous tissues were infiltrated with local anesthetic solution. Sterile gel and sterile probe cover were u tilized for ultrasound guidance. With the patient on the ultrasound table, images were obtained. A needle was advanced into the identified target and the number of specimens as above obtained and ramirez bmitted for pathologic evaluation. The dominant mixed echogenicity mass involving the lateral lower a spect of left lobe of the thyroid was initially biopsied following which a more homogeneously hypoech oic mass in the mid medial left thyroid was biopsied. The patient tolerated the procedure well and left the ultrasound suite in stable condition. CONCLUSION: Uncomplicated ultrasound guided needle biopsy of 2 separate masses in the left thyroid as outlined ab ove. These are the same masses that were sampled in 2016. Lizandro Nayak MD on June 01, 2017 at 16:18 Board Certified Radiologist. This report was verified electronically.
== END 2017-06-01 15:25 | disposition home or self-care (01) ==
LOC: HRIP 12:45 → HRAD 12:45
PROVIDERS: ATTEND Surgery Trauma Surgery
DX: E04.1 Nontoxic single thyroid nodule (principal); Z85.3 Personal history of malignant neoplasm of breast; I10 Essential (primary) hypertension; E78.00 Pure hypercholesterolemia, unspecified; Z95.0 Presence of cardiac pacemaker
CPT/HCPCS: 10022; 76942; 88172; 88173

== ENCOUNTER 2017-06-30 17:18 | Inpatient (IN) | payer MEDICARE ==
[~2017-06-30] VITALS: Ht 165.1 cm; Wt 86.0 kg
[2017-06-30 17:27] VITALS: BP 155/88; PULSE 122; RESP 20; O2SAT 95
[2017-06-30] MEDS ORDERED: PHENYLEPHRINE HCL 0.5% NASAL SPRAY 15 ML BTL NASAL ONE (17:30)
[2017-06-30] MEDS ORDERED: LIDOCAINE HCL 2% JELLY 5 ML SYRINGE TOPICAL ONE (17:45)
[2017-06-30] MEDS ORDERED: PRAS10TA PO (17:47)
[2017-06-30] MEDS ORDERED: COZA50TA PO (17:47)
[2017-06-30] MEDS ORDERED: SPIR25TA PO (17:47)
[2017-06-30 17:54] VITALS: BP 155/88; PULSE 116; RESP 20; O2SAT 95
[2017-06-30 17:57] VITALS: TEMP 98.1
[2017-06-30] MEDS ORDERED: SODIUM CHLORID 0.9% 500 ML INJ 500 ML IV ONE (18:00)
--- NOTE | 2017-06-30 18:02 | PD ---
HPI Chief Complaint: Nosebleed Time Seen by Provider: 17:31 Travel History International Travel<30 days: No Contact w/Intl Traveler<30days: No Traveled to known affect area: No History of Present Illness HPI 77-year-old female came to the emergency room with history of a fall this afternoon. She injured her nose during the fall and started having nosebleed. As per the patient the started at 4:30 in the evening. She went to see her primary care who tried to put Merocel pack into both nostrils but patient continued to bleed. He sent her to the emergency room for possible posterior nosebleed. Patient is on Eliquis for A. fib. Vital signs in triage show tachycardia. Patient is in significant distress from the voluminous nosebleed. She has her nose pinched. I am unable to get too much of descriptive history given her condition. PFSH Past Medical History Narrative Medical List of her past medical, surgical, social and family history reviewed from the nursing note. Hx Anticoagulant Therapy: Yes Arthritis: No Asthma: No Autoimmune Disease: No Anxiety: No Depression: No Heart Rhythm Problems: No Cancer: Yes (breast; right side no bp/sticks) Cardiac Catheterization: Yes Cardiovascular Problems: Yes High Cholesterol: Yes Chemotherapy: Yes (RIGHT BREAST CA -- RIGHT MASECTOMY) Chest Pain: No Congestive Heart Failure: No COPD: No Cerebrovascular Accident: No Diabetes: Yes Diminished Hearing: No Endocrine: Yes GERD: No Genitourinary: No Hiatal Hernia: No Immune Disorder: No Kidney Stones: No Musculoskeletal: No Neurologic: No Psychiatric: No Reproductive: No Respiratory: Yes Migraines: No Pneumonia: Yes Radiation Therapy: Yes Renal Failure: No Seizures: No Sleep Apnea: No Thyroid Disease: Yes Ulcer: No : 2 Para: 2 Miscarriage: 0 : 0 Past Surgical History AICD: No Coronary Stent: Yes (X2 01/2016) Gynecologic Surgery: Yes (RIGHT MASECTOMY) Pacemaker: No Social History Alcohol Use: No Tobacco Use: No Substance Use: No Allergies-Medications (Allergen,Severity, Reaction): Coded Allergies: penicillin G (Unverified Allergy, Intermediate, rash, 10/28/16) Comments List of her allergies reviewed from the nursing note. Reported Meds & Prescriptions Reported Meds & Active Scripts Active Reported Spironolactone 25 Mg Tab 25 Mg PO DAILY Cozaar (Losartan Potassium) 50 Mg Tab 50 Mg PO DAILY Lisinopril 2.5 Mg Tab 2.5 Mg PO DAILY Zocor (Simvastatin) 40 Mg Tab 40 Mg PO HS Coreg (Carvedilol) 3.125 Mg Tab 3.125 Mg PO Q12HR Aspirin 81 Mg Chew 81 Mg CHEW HS Glimepiride 2 Mg Tab 2 Mg PO BID Narrative Medication List of her home medications reviewed from the nursing note Review of Systems Except as stated in HPI: all other systems reviewed are Neg HENT: Positive: Nosebleed Physical Exam Narrative GENERAL: Awake, alert, significant SKIN: Focused skin assessment warm/dry. HEAD: Atraumatic. Normocephalic. EYES: Pupils equal and round. No scleral icterus. No injection or drainage. Intense bleeding from both nostrils right more than left, mouthful of blood each time that patient is trying to spit out. The blood also has some loose clots in it. ENT: No nasal bleeding or discharge. Mucous membranes pink and moist. NECK: Trachea midline. No JVD. CARDIOVASCULAR: Regular rate and rhythm. No murmur appreciated. RESPIRATORY: No accessory muscle use. Clear to auscultation. Breath sounds equal bilaterally. GASTROINTESTINAL: Abdomen soft, non-tender, nondistended. Hepatic and splenic margins not palpable. MUSCULOSKELETAL: No obvious deformities. No clubbing. No cyanosis. No edema. NEUROLOGICAL: Awake and alert. No obvious cranial nerve deficits. Motor grossly within normal limits. Normal speech. PSYCHIATRIC: Appropriate mood and affect; insight and judgment normal. Data Data Last Documented VS Vital Signs Date Time Temp Pulse Resp B/P (MAP) Pulse Ox O2 Delivery O2 Flow Rate FiO2 06/30/17 19:00 98 20 143/72 (95) 97 Room Air 06/30/17 17:57 98.1 Orders Orders Phenylephrine 0.5% Carlitos Spr (Neosynephrin (06/30/17 17:30) Lidocaine 2% Jelly (Xylocaine 2% Jelly) (06/30/17 17:45) Complete Blood Count With Diff (06/30/17 17:46) Basic Metabolic Panel (Bmp) (06/30/17 17:46) Prothrombin Time / Inr (Pt) (06/30/17 17:46) Type And Screen (06/30/17 17:46) Sodium Chlorid 0.9% 500 Ml Inj (Ns 500 M (06/30/17 18:00) Waiter/Waitress Buffet / Telemetry YUE.[id number] (06/30/17 18:02) Electrocardiogram (06/30/17 ) Glimepiride (Amaryl) (06/30/17 19:15) Admit Order (Ed Use Only) (06/30/17 19:33) Labs Laboratory Tests Test 06/30/17 17:50 White Blood Count 10.7 TH/MM3 Red Blood Count 3.93 MIL/MM3 Hemoglobin 12.0 GM/DL Hematocrit 35.1 % Mean Corpuscular Volume 89.4 FL Mean Corpuscular Hemoglobin 30.6 PG Mean Corpuscular Hemoglobin Concent 34.2 % Red Cell Distribution Width 12.4 % Platelet Count 204 TH/MM3 Mean Platelet Volume 11.0 FL Neutrophils (%) (Auto) 62.4 % Lymphocytes (%) (Auto) 28.7 % Monocytes (%) (Auto) 6.9 % Eosinophils (%) (Auto) 1.5 % Basophils (%) (Auto) 0.5 % Neutrophils # (Auto) 6.7 TH/MM3 Lymphocytes # (Auto) 3.1 TH/MM3 Monocytes # (Auto) 0.7 TH/MM3 Eosinophils # (Auto) 0.2 TH/MM3 Basophils # (Auto) 0.0 TH/MM3 CBC Comment DIFF FINAL Differential Comment Prothrombin Time 10.8 SEC Prothromb Time International Ratio 1.1 RATIO Blood Urea Nitrogen 23 MG/DL Creatinine 1.37 MG/DL Random Glucose 365 MG/DL Calcium Level 8.7 MG/DL Sodium Level 139 MEQ/L Potassium Level 4.5 MEQ/L Chloride Level 107 MEQ/L Carbon Dioxide Level 22.3 MEQ/L Anion Gap 10 MEQ/L Estimat Glomerular Filtration Rate 37 ML/MIN [facility] Medical Decision Making Medical Screen Exam Complete: Yes Emergency Medical Condition: Yes Medical Record Reviewed: Yes Interpretation(s) Twelve-lead EKG was reviewed by me. Normal sinus rhythm, normal axis, tachycardia, poor R-wave progression, inferior T-wave inversion. Heart rate of 106 bpm. Differential Diagnosis Anterior nasal bleed, posterior nasal bleed Narrative Course 5:57 PM I try to hold pressure but patient continued to have mouthful of blood spitting out once every 30 seconds into the plastic basin. She was on the color television console monitor and I noticed that her heart rate remained in 120s. At one point oxygen saturation went down to 88% while patient was trying to spit the blood and started coughing. I had ordered medications like David-Synephrine and lidocaine jelly in preparation for packing. However the medications I was told would have to come from pharmacy and because of the urgency of the situation I went ahead and continued with the packing without the medication. Overall patient tolerated the procedure well. The packing eventually stop the bleeding. Please refer to my procedure note. Patient remains hemodynamically stable. Heart rate continues to be in 120s. Oxygen saturation has improved to 93-95% on room air. Patient is getting 500 cc of IV fluid bolus. Awaiting for blood test result. Because of the posterior packing and the amount of blood loss I would like the patient to be admitted at least for observation. ENT can be consulted during the admission. Critical Care Narrative Aggregate critical care time was 30 minutes. Time to perform other separately billable procedures was not included in the critical care time. My time did not include minutes spent treating any other patients simultaneously or on activities that did not directly contribute to the patient's treatment. The services I provided to this patient were to treat and/or prevent clinically significant deterioration that could result in: Posterior nasal bleeding, anterior and posterior nasal pack I provided critical care services requiring my management, as noted below: Chart data review, documentation time, medication orders and management, vital sign assessments/reviewing monitor data, ordering and reviewing lab tests, ordering and interpreting/reviewing x-rays and diagnostic studies, care of the patient and discussion of the patient with the admitting physicians. Procedures Procedure Narrative Nasal packing: Rapid Rhino was used for packing. Patient was first asked to blow her nostrils. After multiple blows patient started out a large loose blood clot from her right nostril. I held pressure for 5 minutes but during the entire time patient continued to spit out mouthful of blood with loose clot once every 30 seconds into the plastic basin. At this point I decided to go ahead and do the packing with the rapid Rhino for both anterior and posterior bleed. Rapid Rhino after being soaked into cold water for 30 seconds was inserted into the right nostril with once with pressure move followed by inflation of the posterior packing balloon with approximately 7 mL of air. This was followed by inflation of the anterior balloon with 10 mL of air. The catheter was taped to the right cheek. This have the packing in position. Patient was given cold water to rinse her mouth. 5 minutes later I inspected the posterior pharynx and did not see any blood posteriorly trickling. There was no anterior bleeding either. Hemostasis was achieved. Patient tolerated the procedure well. EKG Prior to Arrival: No Diagnosis Primary Impression: Acute posterior epistaxis Additional Impressions: Hyperglycemia Tachycardia Admitting Information Admitting Physician Requests: Observation Scripts Clindamycin (Clindamycin) 150 Mg Cap 300 MG PO Q8HR for Infection for 3 Days, CAP 0 Refills Prov: Ranjana Earl PA-C 07/01/17 Vivek Troy MD Jun 30, 2017 18:02
[2017-06-30 18:05] VITALS: BP 173/80; PULSE 105; RESP 21; O2SAT 95
[2017-06-30 18:23] LABS: AUTOMATED NEUTROPHIL # 6.7 TH/MM3 (1.8-7.7); BASOPHIL % 0.5 % (0.0-2.0); EOSINOPHIL # 0.2 TH/MM3 (0-0.4); EOSINOPHIL % 1.5 % (0.0-4.0); HEMATOCRIT 35.1 % (35.0-46.0); LYMPH % 28.7 % (9.0-44.0); LYMPHOCYTE # 3.1 TH/MM3 (1.0-4.8); MEAN CELL VOLUME 89.4 FL (80.0-100.0); MEAN CORPUSCULAR HEMOGLOBIN 30.6 PG (27.0-34.0); MEAN CORPUSCULAR HGB CONC 34.2 % (32.0-36.0); MONO % 6.9 % (0.0-8.0); MONOCYTE # 0.7 TH/MM3 (0-0.9); NEUT % 62.4 % (16.0-70.0); PLATELET COUNT 204 TH/MM3 (150-450); RED BLOOD COUNT 3.93 MIL/MM3 (4.00-5.30); RED CELL DISTRIBUTION WIDTH 12.4 % (11.6-17.2); WHITE BLOOD COUNT 10.7 TH/MM3 (4.0-11.0)
[2017-06-30 18:40] LABS: INTERNATIONAL NORMALIZED RATIO 1.1 RATIO; PROTHROMBIN TIME - PATIENT 10.8 SEC (9.8-11.6)
[2017-06-30 18:55] LABS: BICARBONATE 22.3 MEQ/L (21.0-32.0); CALCIUM 8.7 MG/DL (8.5-10.1); CREATININE 1.37 MG/DL (0.50-1.00)
[2017-06-30 19:00] VITALS: BP 143/72; PULSE 98; RESP 20; O2SAT 97
[2017-06-30] MEDS ORDERED: GLIMEPIRIDE 2 MG TAB PO ONE (19:15)
[2017-06-30 19:40] VITALS: BP 143/72; PULSE 109; RESP 20; O2SAT 95
[2017-06-30] MEDS ORDERED: LACTULOSE SYRUP 20 GM/30 ML CUP PO PRN (21:30)
[2017-06-30] MEDS ORDERED: ONDANSETRON HCL 4 MG/2 ML VIAL IVP PRN (21:30)
[2017-06-30] MEDS ORDERED: SODIUM CHLORIDE 0.9% FLUSH 10 ML FLUSH IV FLUSH PRN (21:30)
[2017-06-30] MEDS ORDERED: MAGNESIUM HYDROXIDE SUSP 30 ML CUP PO PRN (21:30)
[2017-06-30] MEDS ORDERED: NALOXONE HCL 0.4 MG/ML AMP IV PUSH PRN (21:30)
[2017-06-30] MEDS ORDERED: ACETAMINOPHEN 325 MG TAB PO PRN (21:30)
[2017-06-30] MEDS ORDERED: SENNOSIDES 8.6 MG TAB PO PRN (21:30)
[2017-06-30] MEDS ORDERED: BISACODYL 10 MG SUPP RECTAL PRN (21:30)
--- NOTE | 2017-06-30 23:14 | HHI.HP ---
HPI Service [facility] Primary Care Physician Non-Staff Admission Diagnosis Posterior epistaxis, tachycardic Diagnoses: Travel History International Travel<30 Days: No Contact w/Intl Traveler <30 Da: No Traveled to Known Affected Are: No History of Present Illness 77-year-old female with a past medical history significant for atrial fibrillation, anticoagulated on Effient, with AICD, history of breast cancer, hyperlipidemia and diabetes mellitus presents to the emergency department for the evaluation of a nosebleed. The patient reports that approximately 4:00 this afternoon her nose began to bleed and she could not get it to stop. She was seen in urgent care who then sent her to the emergency department for further evaluation and treatment. The patient required posterior packing and hemostasis was achieved. She continues to spit out large clots from her mouth. She denies any pain. No chest pain or shortness of breath. No abdominal pain. No nausea/vomiting/diarrhea. No lateralizing signs/symptoms. The patient reports she has never had an episode like this before. Review of Systems Except as stated in HPI: all other systems reviewed are Neg Past Family Social History Past Medical History Atrial fibrillation anticoagulated on Effient History of breast cancer Hyperlipidemia Diabetes mellitus Past Surgical History AICD placement Right mastectomy Reported Medications Reported Meds & Active Scripts Active Reported Spironolactone 25 Mg Tab 25 Mg PO DAILY Cozaar (Losartan Potassium) 50 Mg Tab 50 Mg PO DAILY Effient (Prasugrel) 10 Mg Tab 10 Mg PO DAILY Lisinopril 2.5 Mg Tab 2.5 Mg PO DAILY Zocor (Simvastatin) 40 Mg Tab 40 Mg PO HS Coreg (Carvedilol) 3.125 Mg Tab 3.125 Mg PO Q12HR Aspirin 81 Mg Chew 81 Mg CHEW HS Glimepiride 2 Mg Tab 2 Mg PO BID Allergies: Coded Allergies: penicillin G (Unverified Allergy, Intermediate, rash, 10/28/16) Family History Negative for CAD/DM Social History Negative for alcohol, tobacco and illicit drugs. Physical Exam Vital Signs Vital Signs Date Time Temp Pulse Resp B/P (MAP) Pulse Ox O2 Delivery O2 Flow Rate FiO2 06/30/17 19:40 109 20 143/72 (95) 95 Room Air 06/30/17 19:00 98 20 143/72 (95) 97 Room Air 06/30/17 18:05 105 21 173/80 (111) 95 Room Air 06/30/17 17:57 98.1 06/30/17 17:54 122 20 06/30/17 17:54 116 20 155/88 (110) 95 Room Air 06/30/17 17:27 122 20 155/88 (110) 95 Physical Exam GENERAL: female sitting up in bed SKIN: No rashes, ecchymoses or lesions. Cool and dry. HEAD: Atraumatic. Normocephalic. No temporal or scalp tenderness. EYES: Pupils equal round and reactive. Extraocular motions intact. No scleral icterus. No injection or drainage. ENT: Right nare with packing, with shadowing. Throat with scant amounts of blood. NECK: Trachea midline. No JVD or lymphadenopathy. Supple, nontender, no meningeal signs. CARDIOVASCULAR: Regular rate and irregularly irregular rhythm without murmurs, gallops, or rubs. RESPIRATORY: Clear to auscultation. Breath sounds equal bilaterally. No wheezes , rales, or rhonchi. GASTROINTESTINAL: Abdomen soft, non-tender, nondistended. No hepato-splenomegaly , or palpable masses. No guarding. MUSCULOSKELETAL: Extremities without clubbing, cyanosis, or edema. No joint tenderness, effusion, or edema noted. No calf tenderness. NEUROLOGICAL: Awake and alert. Cranial nerves II through XII intact. Motor and sensory grossly within normal limits. Normal speech. Laboratory Laboratory Tests Test 06/30/17 17:50 White Blood Count 10.7 Red Blood Count 3.93 Hemoglobin 12.0 Hematocrit 35.1 Mean Corpuscular Volume 89.4 Mean Corpuscular Hemoglobin 30.6 Mean Corpuscular Hemoglobin Concent 34.2 Red Cell Distribution Width 12.4 Platelet Count 204 Mean Platelet Volume 11.0 Neutrophils (%) (Auto) 62.4 Lymphocytes (%) (Auto) 28.7 Monocytes (%) (Auto) 6.9 Eosinophils (%) (Auto) 1.5 Basophils (%) (Auto) 0.5 Neutrophils # (Auto) 6.7 Lymphocytes # (Auto) 3.1 Monocytes # (Auto) 0.7 Eosinophils # (Auto) 0.2 Basophils # (Auto) 0.0 CBC Comment DIFF FINAL Differential Comment Prothrombin Time 10.8 Prothromb Time International Ratio 1.1 Blood Urea Nitrogen 23 Creatinine 1.37 Random Glucose 365 Calcium Level 8.7 Sodium Level 139 Potassium Level 4.5 Chloride Level 107 Carbon Dioxide Level 22.3 Anion Gap 10 Estimat Glomerular Filtration Rate 37 Result Diagram: 06/30/17 1750 06/30/17 175 Caprini VTE Risk Assessment Caprini VTE Risk Assessment: Mod/High Risk (score >= 2) Caprini Risk Assessment Model Point Value = 1 Point Value = 2 Point Value = 3 Point Value = 5 Age 41-60 Minor surgery BMI > 25 kg/m2 Swollen legs Varicose veins or History of unexplained or recurrent spontaneous Oral contraceptives or hormone replacement Sepsis (< 1 month) Serious lung disease, including pneumonia (< 1 month) Abnormal pulmonary function Acute myocardial infarction Congestive heart failure (< 1 month) History of inflammatory bowel disease Medical patient at bed rest Age 61-74 Arthroscopic surgery Major open surgery (> 45 min) Laparoscopic surgery (> 45 min) Malignancy Confined to bed (> 72 hours) Immobilizing plaster cast Central venous access Age >= 75 History of VTE Family history of VTE Factor V Leiden Prothrombin [id number] Lupus anticoagulant Anticardiolipin antibodies Elevated serum homocysteine Heparin-induced thrombocytopenia Other congenital or acquired thrombophilia Stroke (< 1 month) Elective arthroplasty Hip, pelvis, or leg fracture Acute spinal cord injury (< 1 month) Prophylaxis Regimen Total Risk Factor Score Risk Level Prophylaxis Regimen 0-1 Low Early ambulation 2 Moderate Order ONE of the following: *Sequential Compression Device (SCD) *Heparin 5000 units SQ BID 3-4 Higher Order ONE of the following medications: *Heparin 5000 units SQ TID *Enoxaparin/Lovenox 40 mg SQ daily (WT < 150 kg, CrCl > 30 mL/min) *Enoxaparin/Lovenox 30 mg SQ daily (WT < 150 kg, CrCl > 10-29 mL/min) *Enoxaparin/Lovenox 30 mg SQ BID (WT < 150 kg, CrCl > 30 mL/min) AND/OR *Sequential Compression Device (SCD) 5 or more Highest Order ONE of the following medications: *Heparin 5000 units SQ TID (Preferred with Epidurals) *Enoxaparin/Lovenox 40 mg SQ daily (WT < 150 kg, CrCl > 30 mL/min) *Enoxaparin/Lovenox 30 mg SQ daily (WT < 150 kg, CrCl > 10-29 mL/min) *Enoxaparin/Lovenox 30 mg SQ BID (WT < 150 kg, CrCl > 30 mL/min) AND *Sequential Compression Device (SCD) Assessment and Plan Assessment and Plan Assessment/plan: 1. Anterior/posterior nasal bleed Status post packing, hemostasis achieved Repeat H&H at midnight ENT consulted for further evaluation and to remove packing, appreciate assistance CBC in a.m. 2. Atrial fibrillation Holding Effient secondary to bleed Continue home medications 3. Hyperlipidemia Continue home statin 4. Diabetes mellitus Holding oral antihyperglycemic Sliding-scale insulin Monitor blood glucose FEN NPO NS at 70 cc/hr Electrolytes: Monitor and replete as needed Holding anticoagulation secondary to bleed Physician Certification 2 Midnight Certification Type: Admission for Inpatient Services Order for Inpatient Services The services are ordered in accordance with Medicare regulations or non- Medicare payer requirements, as applicable. In the case of services not specified as inpatient-only, they are appropriately provided as inpatient services in accordance with the 2-midnight benchmark. Estimated LOS (days): 2 2 days is the estimated time the patient will need to remain in the hospital, assuming treatment plan goals are met and no additional complications. Post-Hospital Plan: Not yet determined Adriana Washington MD Jun 30, 2017 23:14
[2017-06-30] MEDS ORDERED: SODIUM CHLOR 0.9% 1000 ML INJ 1,000 ML IV SCH (23:15)
[2017-06-30] MEDS ORDERED: GLUCAGON 1 MG/ML VIAL OTHER PRN (23:15)
[2017-06-30] MEDS ORDERED: DEXTROSE 50% IN WATER 50 ML VIAL(D50) IV PUSH PRN (23:15)
[2017-07-01 03:56] LABS: HEMATOCRIT 32.4 % (35.0-46.0)
[2017-07-01 04:31] VITALS: BP 147/64; PULSE 85; RESP 18; TEMP 98.3; O2SAT 97
[2017-07-01 07:48] VITALS: BP 144/87; PULSE 88; RESP 20; TEMP 98; O2SAT 96
[2017-07-01] MEDS ORDERED: INSULIN ASPART SUPPLEMENTAL SCALE SQ SCH (08:00)
[2017-07-01] MEDS ORDERED: CARVEDILOL 3.125 MG TAB PO SCH (09:00)
[2017-07-01] MEDS ORDERED: LISINOPRIL 5 MG TAB PO SCH (09:00)
[2017-07-01] MEDS ORDERED: DOCUSATE SODIUM 50 MG/SENNA 8.6 MG TAB PO SCH (09:00)
[2017-07-01] MEDS ORDERED: LOSARTAN 50 MG TAB PO SCH (09:00)
[2017-07-01] MEDS ORDERED: SODIUM CHLORIDE 0.9% FLUSH 10 ML FLUSH IV FLUSH SCH (09:00)
[2017-07-01] MEDS ORDERED: SPIRONOLACTONE 25 MG TAB PO SCH (09:00)
--- NOTE | 2017-07-01 09:34 | PD.CONS ---
History of Present Illness Service ENT Consult Requested By ED Reason for Consult Epistaxis Primary Care Physician Non-Staff Diagnoses: History of Present Illness 77 year old female on anticoagulants fell and developed right epistaxis. Controlled in ED with right packing. Has been observed overnight. Wishes to go home. Review of Systems Ears, nose, mouth, throat: COMPLAINS OF: Epistaxis, DENIES: Vertigo, Nasal discharge, Oral lesions, Throat pain, Sinus Pain Past Family Social History Allergies: Coded Allergies: penicillin G (Unverified Allergy, Intermediate, rash, 10/28/16) Physical Exam Vital Signs Vital Signs Date Time Temp Pulse Resp B/P (MAP) Pulse Ox O2 Delivery O2 Flow Rate FiO2 07/01/17 07:48 98.0 88 20 144/87 (106) 96 07/01/17 04:31 98.3 85 18 147/64 (91) 97 06/30/17 19:40 109 20 143/72 (95) 95 Room Air 06/30/17 19:00 98 20 143/72 (95) 97 Room Air 06/30/17 18:05 105 21 173/80 (111) 95 Room Air 06/30/17 17:57 98.1 06/30/17 17:54 122 20 06/30/17 17:54 116 20 155/88 (110) 95 Room Air 06/30/17 17:27 122 20 155/88 (110) 95 Physical Exam GENERAL: This is a well-nourished, well-developed patient, in no apparent distress. SKIN: No rashes, ecchymoses or lesions. Cool and dry. HEAD: Atraumatic. Normocephalic. No temporal or scalp tenderness. EYES: Pupils equal round and reactive. Extraocular motions intact. No scleral icterus. No injection or drainage. ENT: Nose without active bleeding, right rapid rhino packing in place. No purulent drainage. Throat without erythema, tonsillar hypertrophy or exudate. Uvula midline. Airway patent. NECK: Trachea midline. No JVD or lymphadenopathy. Supple, nontender, no meningeal signs. NEUROLOGICAL: Awake and alert. Normal speech. Laboratory Laboratory Tests Test 06/30/17 17:50 07/01/17 03:40 White Blood Count 10.7 Red Blood Count 3.93 Hemoglobin 12.0 11.0 Hematocrit 35.1 32.4 Mean Corpuscular Volume 89.4 Mean Corpuscular Hemoglobin 30.6 Mean Corpuscular Hemoglobin Concent 34.2 Red Cell Distribution Width 12.4 Platelet Count 204 Mean Platelet Volume 11.0 Neutrophils (%) (Auto) 62.4 Lymphocytes (%) (Auto) 28.7 Monocytes (%) (Auto) 6.9 Eosinophils (%) (Auto) 1.5 Basophils (%) (Auto) 0.5 Neutrophils # (Auto) 6.7 Lymphocytes # (Auto) 3.1 Monocytes # (Auto) 0.7 Eosinophils # (Auto) 0.2 Basophils # (Auto) 0.0 CBC Comment DIFF FINAL Differential Comment Prothrombin Time 10.8 Prothromb Time International Ratio 1.1 Blood Urea Nitrogen 23 Creatinine 1.37 Random Glucose 365 Calcium Level 8.7 Sodium Level 139 Potassium Level 4.5 Chloride Level 107 Carbon Dioxide Level 22.3 Anion Gap 10 Estimat Glomerular Filtration Rate 37 Result Diagram: 07/01/17 0340 06/30/17 1750 Assessment and Plan Assessment and Plan Right epistaxis, would be preferable to hold anticoagulation if this is possible. Should be on antibiotics while packing is in. Wants to go home. Can discharge per ENT. Follow up in [facility] Thursday with Dr España. Johan Delvalle MD Jul 01, 2017 09:34
[2017-07-01] MEDS ORDERED: CLIN150C14 PO (09:40)
--- NOTE | 2017-07-01 09:47 | HHI.DCPOC ---
Discharge Care Plan Diagnosis: (1) Acute posterior epistaxis Goals to Promote Your Health * To prevent worsening of your condition and complications * To maintain your health at the optimal level Directions to Meet Your Goals Take your medications as prescribed Follow your dietary instruction Follow activity as directed Keep your appointments as scheduled Take your immunizations and boosters as scheduled If your symptoms worsen call your PCP, if no PCP go to Urgent Care Center or Emergency Room Smoking is Dangerous to Your Health. Avoid second hand smoke Call the 24-hour hour crisis hotline for domestic abuse at Ranjana Earl PA-C Jul 01, 2017 09:47
--- NOTE | 2017-07-01 10:04 | HHI.PR ---
Subjective Remarks in no acute distress. nosebleed has improved. no chest pain, sob or dizziness. Objective Vitals Vital Signs Date Time Temp Pulse Resp B/P (MAP) Pulse Ox O2 Delivery O2 Flow Rate FiO2 07/01/17 07:48 98.0 88 20 144/87 (106) 96 07/01/17 04:31 98.3 85 18 147/64 (91) 97 06/30/17 19:40 109 20 143/72 (95) 95 Room Air 06/30/17 19:00 98 20 143/72 (95) 97 Room Air 06/30/17 18:05 105 21 173/80 (111) 95 Room Air 06/30/17 17:57 98.1 06/30/17 17:54 122 20 06/30/17 17:54 116 20 155/88 (110) 95 Room Air 06/30/17 17:27 122 20 155/88 (110) 95 Result Diagram: 07/01/17 0340 06/30/17 1750 Objective Remarks GENERAL: This is a well-nourished, well-developed patient, in no apparent distress. HEENT; nasal packing in place. CARDIOVASCULAR: Regular rate and regular rhythm without murmurs, gallops, or rubs. RESPIRATORY: Clear to auscultation. Breath sounds equal bilaterally. No wheezes , rales, or rhonchi. GASTROINTESTINAL: Abdomen soft, non-tender, nondistended. Normal, active bowel sounds MUSCULOSKELETAL: Extremities without clubbing, cyanosis, or edema. NEURO: Alert & Oriented x4 to person, place, time, situation. Moves all ext x4 Medications and IVs Inpatient Medications Acetaminophen (Tylenol) 650 mg Q4H PRN PO TEMP > 100.4/pain; Start 06/30/17 at 21:30 Bisacodyl (Dulcolax Supp) 10 mg DAILY PRN RECTAL SEVERE CONSITIPATION/ IF NPO ; Start 06/30/17 at 21:30 Carvedilol (Coreg) 3.125 mg Q12HR PO ; Start 07/01/17 at 09:00 Dextrose (D50w (Vial) Inj) 50 ml UNSCH PRN IV PUSH HYPOGLYCEMIA-SEE COMMENTS; Start 06/30/17 at 23:15 Glimepiride (Amaryl) 2 mg ONCE ONCE PO Last administered on 06/30/17at 19:15; Start 06/30/17 at 19:15; Stop 06/30/17 at 19:16; Status DC Glucagon (Glucagon Inj) 1 mg UNSCH PRN OTHER HYPOGLYCEMIA-SEE COMMENTS; Start 06/30/17 at 23:15 Insulin Aspart (NovoLOG SUPPLEMENTAL SCALE) 1 ACHS SLIDING SCALE SQ ; Start at 08:00 Lactulose (Lactulose Liq) 30 ml DAILY PRN PO SEVERE CONSITIPATION/ IF PO; Start 06/30/17 at 21:30 Lidocaine HCl (Xylocaine 2% Jelly) 5 ml ONCE ONCE TOPICAL Last administered on 06/30/17at 17:45; Start 06/30/17 at 17:45; Stop 06/30/17 at 17:46; Status DC Lisinopril (Prinivil) 2.5 mg DAILY PO ; Start 07/01/17 at 09:00 Losartan Potassium (Cozaar) 50 mg DAILY PO ; Start 07/01/17 at 09:00 Magnesium Hydroxide (Milk Of Magnesia Liq) 30 ml Q12H PRN PO Mild constipation ; Start 06/30/17 at 21:30 Naloxone HCl (Narcan Inj) 0.4 mg UNSCH PRN IV PUSH SEE LABEL COMMENTS; Start at 21:30 Ondansetron HCl (Zofran Inj) 4 mg Q6H PRN IVP NAUSEA OR VOMITING; Start at 21:30 Phenylephrine HCl (Neosynephrine 0.5% [place] Spr) 2 spray ONCE ONCE NASAL ; Start 06/30/17 at 17:30; Stop 06/30/17 at 17:31; Status DC Pravastatin Sodium (Pravachol) 80 mg HS PO ; Start 07/01/17 at 21:00 Senna/Docusate Sodium (Megan-Colace) 1 tab BID PO ; Start 07/01/17 at 09:00 Sennosides (Senokot) 17.2 mg Q12H PRN PO Moderate constipation; Start 06/30/17 at 21:30 Sodium Chloride 1,000 ml @ 70 mls/hr [id number] IV Last administered on at 23:49; Start 06/30/17 at 23:15 Sodium Chloride (NS Flush) 2 ml BID IV FLUSH ; Start 07/01/17 at 09:00 Spironolactone (Aldactone) 25 mg DAILY PO ; Start 07/01/17 at 09:00 A/P Assessment and Plan 1. Anterior/posterior nasal bleed Status post packing, hemostasis achieved ENT consulted for further evaluation ; cleared for discharge with outpatient f/ u. 2.CAD- s/p stent placement Holding Effient secondary to bleed continue aspirin d/w . 3. Hyperlipidemia Continue home statin 4. Diabetes mellitus Holding oral antihyperglycemic Sliding-scale insulin Monitor blood glucose Discharge Planning dc home today with f/u by pcp and ENT. see med list. d/w the patient and . made an jayleen with in the office for 07/03/17 and this was d/w the patient. Francisco Vasquez MD Jul 01, 2017 10:04
[2017-07-01] MEDS ORDERED: PRAVASTATIN SOD 40 MG TAB PO SCH (21:00)
--- NOTE | 2017-07-01 22:49 | EKG ---
Date Performed: 06/30/2017 Time Performed: 18:04:29 PTAGE: 77 years EKG: SINUS TACHYCARDIA POSSIBLE ANTERIOR MYOCARDIAL INFARCTION ABNORMAL ECG PREVIOUS TRACING : 04/16/2016 13.28 Since the previous tracing, no significant change noted DOCTOR: José Dunn Interpretating Date/Time 07/01/2017 22:47:30
== END 2017-07-01 14:15 | disposition home or self-care (01) | DRG 151 ==
LOC: NEPD 17:18 → NEDA 19:34 → NEPFCDU 22:12 → OBSVTOIN 23:00
PROVIDERS: ADMIT Internal Medicine; ATTEND Internal Medicine
PROC: 2Y41X5Z Packing of Nasal Region using Packing Material (ICD-10-PCS; principal; 2017-06-30)
DX: R04.0 Epistaxis (principal); D68.32 Hemorrhagic disorder due to extrinsic circulating anticoagulants; E11.65 Type 2 diabetes mellitus with hyperglycemia; I48.91 Unspecified atrial fibrillation; T45.515A Adverse effect of anticoagulants, initial encounter; R00.0 Tachycardia, unspecified; E78.5 Hyperlipidemia, unspecified; E07.9 Disorder of thyroid, unspecified; I25.10 Atherosclerotic heart disease of native coronary artery without angina pectoris; W19.XXXA Unspecified fall, initial encounter; Z79.01 Long term (current) use of anticoagulants; Z79.84 Long term (current) use of oral hypoglycemic drugs; Z85.3 Personal history of malignant neoplasm of breast; Z88.0 Allergy status to penicillin; Z90.11 Acquired absence of right breast and nipple; Z95.5 Presence of coronary angioplasty implant and graft; Z95.810 Presence of automatic (implantable) cardiac defibrillator
CPT/HCPCS: 80048; 82948; 85014; 85018; 85025; 85610; 86850; 86900; 86901; 93005; 96360; J1815; J7030; J7040

== ENCOUNTER 2017-07-13 09:07 | Emergency (ER) | payer MEDICARE ==
[~2017-07-13] VITALS: Ht 165.1 cm; Wt 86.0 kg
[~2017-07-13 09:07] MED LIST changes: +CLIN150C14 PO; +COZA50TA PO; -FEMA2.5T PO; -FURO10IN PO; -LEVA500T PO; -METF500T PO; -PRAS10TA PO; -SACU1TAB PO
[2017-07-13 09:10] VITALS: BP 144/64; PULSE 91; RESP 18; TEMP 98.1; O2SAT 0; O2SAT 99
[2017-07-13] MEDS ORDERED: SODIUM CHLOR 0.9% 1000 ML INJ 1,000 ML IV ONE ×2 (09:22→09:52)
[2017-07-13 09:29] VITALS: RESP 17; TEMP 97.8; O2SAT 98
[2017-07-13] MEDS ORDERED: SODIUM CHLORIDE 0.9% FLUSH 10 ML FLUSH IVF PRN (09:30)
--- NOTE | 2017-07-13 09:32 | PD ---
HPI Chief Complaint: Diabetic Time Seen by Provider: 09:22 Travel History International Travel<30 days: No Contact w/Intl Traveler<30days: No Traveled to known affect area: No History of Present Illness HPI The patient 77 years old. She arrives to the ER with complaint of hyperglycemia. She reports her blood glucose was as high as [address] Ruelas told her to come to the ER if she cannot get her blood glucose below 300. This morning it was 288. The patient arrives here believing an admission would be indicated. She was just discharged from [facility] in [place] following admission for acute kidney injury and CHF. Location endocrine generalized. Timing constant. PFSH Past Medical History Hx Anticoagulant Therapy: Yes Arthritis: No Asthma: No Atrial Fibrillation: Yes Autoimmune Disease: No Blood Disorders: No Anxiety: No Depression: No Heart Rhythm Problems: Yes (AFIB) Cancer: Yes (breast; right side no bp/sticks) Cardiac Catheterization: Yes Cardiovascular Problems: Yes High Cholesterol: Yes Chemotherapy: Yes (RIGHT BREAST CA -- RIGHT MASECTOMY) Chest Pain: No Congestive Heart Failure: No COPD: No Cerebrovascular Accident: No Diabetes: Yes Diminished Hearing: No Endocrine: Yes GERD: No Genitourinary: No Hiatal Hernia: No Immune Disorder: No Kidney Stones: No Musculoskeletal: No Neurologic: No Psychiatric: No Reproductive: No Respiratory: No Migraines: No Pneumonia: Yes Radiation Therapy: Yes Renal Failure: No Seizures: No Sleep Apnea: No Thyroid Disease: Yes Ulcer: No : 2 Para: 2 Miscarriage: 0 : 0 Past Surgical History AICD: No Body Medical Devices: DEFIBRILLATOR Cardiac Surgery: Yes (AICD PLACEMENT) Coronary Stent: Yes (X2 01/2016) Gynecologic Surgery: Yes (RIGHT MASECTOMY) Pacemaker: No Other Surgery: Yes (right mastectomy 2000) Social History Alcohol Use: No Tobacco Use: No Substance Use: No Allergies-Medications (Allergen,Severity, Reaction): Coded Allergies: penicillin G (Verified Allergy, Intermediate, rash, 07/13/17) Reported Meds & Prescriptions Reported Meds & Active Scripts Active Reported Spironolactone 25 Mg Tab 25 Mg PO DAILY Cozaar (Losartan Potassium) 50 Mg Tab 50 Mg PO DAILY Zocor (Simvastatin) 40 Mg Tab 40 Mg PO HS Coreg (Carvedilol) 3.125 Mg Tab 3.125 Mg PO Q12HR Glimepiride 2 Mg Tab 2 Mg PO BID Review of Systems Except as stated in HPI: all other systems reviewed are Neg General / Constitutional: No: Fever Physical Exam Narrative GENERAL: 77-year-old female well-nourished well-developed no acute distress Vital Signs Date Time Temp Pulse Resp B/P (MAP) Pulse Ox O2 Delivery O2 Flow Rate FiO2 07/13/17 09:29 97.8 17 98 Room Air 07/13/17 09:10 98.1 91 18 144/64 (90) 99 SKIN: Warm and dry. HEAD: Atraumatic. Normocephalic. EYES: Pupils equal and round. No scleral icterus. No injection or drainage. ENT: No nasal bleeding or discharge. Mucous membranes pink and moist. NECK: Trachea midline. No JVD. CARDIOVASCULAR: Regular rate and rhythm. RESPIRATORY: No accessory muscle use. Clear to auscultation. Breath sounds equal bilaterally. GASTROINTESTINAL: Abdomen soft, non-tender, nondistended. Hepatic and splenic margins not palpable. MUSCULOSKELETAL: Extremities without clubbing, cyanosis, or edema. No obvious deformities. NEUROLOGICAL: Awake and alert. No obvious cranial nerve deficits. Motor grossly within normal limits. Five out of 5 muscle strength in the arms and legs. Normal speech. PSYCHIATRIC: Appropriate mood and affect; insight and judgment normal. Data Data Last Documented VS Vital Signs Date Time Temp Pulse Resp B/P (MAP) Pulse Ox O2 Delivery O2 Flow Rate FiO2 07/13/17 09:29 97.8 17 98 Room Air 07/13/17 09:25 89 07/13/17 09:10 144/64 (90) Orders Orders Complete Blood Count With Diff (07/13/17:22) Comprehensive Metabolic Panel (07/13/17:22) Beta Hydroxybutyrate (Acetone) (07/13/17:22) Urinalysis - C+S If Indicated (07/13/17:22) Blood Glucose (07/13/17 09:22) Blood Glucose (07/13/17 10:22) Blood Glucose (07/13/17 09:22) Ecg Monitoring (07/13/17:22) Iv Access Insert/Monitor (07/13/17:22) Oximetry (07/13/17:22) NPO (07/13/17 09:22) Sodium Chlor 0.9% 1000 Ml Inj (Ns 1000 M (07/13/17 09:22) Sodium Chlor 0.9% 1000 Ml Inj (Ns 1000 M (07/13/17 09:52) Sodium Chloride 0.9% Flush (Ns Flush) (07/13/17 09:30) Insulin Human Regular Inj (Novolin R Inj (07/13/17 09:45) Ed Discharge Order (07/13/17 10:38) Labs Laboratory Tests Test 07/13/17 09:32 07/13/17 09:34 White Blood Count 9.4 TH/MM3 Red Blood Count 3.09 MIL/MM3 Hemoglobin 9.3 GM/DL Hematocrit 27.8 % Mean Corpuscular Volume 90.0 FL Mean Corpuscular Hemoglobin 30.1 PG Mean Corpuscular Hemoglobin Concent 33.4 % Red Cell Distribution Width 12.7 % Platelet Count 221 TH/MM3 Mean Platelet Volume 10.0 FL Neutrophils (%) (Auto) 80.2 % Lymphocytes (%) (Auto) 12.1 % Monocytes (%) (Auto) 5.5 % Eosinophils (%) (Auto) 1.5 % Basophils (%) (Auto) 0.7 % Neutrophils # (Auto) 7.6 TH/MM3 Lymphocytes # (Auto) 1.1 TH/MM3 Monocytes # (Auto) 0.5 TH/MM3 Eosinophils # (Auto) 0.1 TH/MM3 Basophils # (Auto) 0.1 TH/MM3 CBC Comment DIFF FINAL Differential Comment Blood Urea Nitrogen 17 MG/DL Creatinine 1.20 MG/DL Random Glucose 371 MG/DL Total Protein 6.6 GM/DL Albumin 3.0 GM/DL Calcium Level 9.1 MG/DL Alkaline Phosphatase 58 U/L Aspartate Amino Transf (AST/SGOT) 11 U/L Alanine Aminotransferase (ALT/SGPT) 18 U/L Total Bilirubin 0.4 MG/DL Sodium Level 137 MEQ/L Potassium Level 4.7 MEQ/L Chloride Level 103 MEQ/L Carbon Dioxide Level 26.7 MEQ/L Anion Gap 7 MEQ/L Estimat Glomerular Filtration Rate 44 ML/MIN B-Hydroxybutyrate 0.17 MMOL/L Urine Color YELLOW Urine Turbidity CLEAR Urine pH 5.0 Urine Specific [place] 1.020 Urine Protein NEG mg/dL Urine Glucose (UA) 1000 mg/dL Urine Ketones 10 mg/dL Urine Occult Blood NEG Urine Nitrite NEG Urine Bilirubin NEG Urine Urobilinogen LESS THAN 2.0 MG/DL Urine Leukocyte Esterase TRACE Urine RBC 1 /hpf Urine WBC 5 /hpf Urine Squamous Epithelial Cells 1 /hpf Urine Hyaline Casts 2 /lpf Urine Mucus FEW /lpf Microscopic Urinalysis Comment CULT NOT INDICATED MDM Medical Decision Making Medical Screen Exam Complete: Yes Emergency Medical Condition: Yes Medical Record Reviewed: Yes Differential Diagnosis DKA, hyperglycemia, metabolic derangement Narrative Course CBC & BMP Diagram 07/13/17 09:32 Total Protein 6.6, Albumin 3.0 L, Calcium Level 9.1, Alkaline Phosphatase 58, Aspartate Amino Transf (AST/SGOT) 11 L, Alanine Aminotransferase (ALT/SGPT) 18, Total Bilirubin 0.4 Repeat blood glucose is 268 10 units IV insulin administered. There is a drop in hemoglobin of indeterminant etiology however pt is stable for discharge home. Pt advised of change in hemoglobin. Pt given extra blankets. All questions answered at bedside. The case was discussed with Dr. Ruelas. Effort will be made to see the patient tomorrow. Diagnosis Primary Impression: Hyperglycemia Additional Impression: Anemia Qualified Codes: D64.9 - Anemia, unspecified Referrals: Primary Care Physician 1 day Med/Other Pt SpecificInfo: No Change to Meds Disposition: DISCHARGE HOME Condition: Stable Davis Baum MD Jul 13, 2017 09:32
[2017-07-13 09:44] LABS: AUTOMATED NEUTROPHIL # 7.6 TH/MM3 (1.8-7.7); BASOPHIL # 0.1 TH/MM3 (0-0.2); BASOPHIL % 0.7 % (0.0-2.0); EOSINOPHIL # 0.1 TH/MM3 (0-0.4); EOSINOPHIL % 1.5 % (0.0-4.0); HEMATOCRIT 27.8 % (35.0-46.0); HEMOGLOBIN 9.3 GM/DL (11.6-15.3); LYMPH % 12.1 % (9.0-44.0); LYMPHOCYTE # 1.1 TH/MM3 (1.0-4.8); MEAN CORPUSCULAR HEMOGLOBIN 30.1 PG (27.0-34.0); MEAN CORPUSCULAR HGB CONC 33.4 % (32.0-36.0); MONO % 5.5 % (0.0-8.0); MONOCYTE # 0.5 TH/MM3 (0-0.9); NEUT % 80.2 % (16.0-70.0); PLATELET COUNT 221 TH/MM3 (150-450); RED BLOOD COUNT 3.09 MIL/MM3 (4.00-5.30); RED CELL DISTRIBUTION WIDTH 12.7 % (11.6-17.2); WHITE BLOOD COUNT 9.4 TH/MM3 (4.0-11.0)
[2017-07-13] MEDS ORDERED: INSULIN HUMAN REGULAR 1,000 UNITS/10 ML VIAL IV PUSH ONE (09:45)
[2017-07-13 09:51] LABS: BILIRUBIN, URINE NEG (NEG); BLOOD, URINE NEG (NEG); GLUCOSE,URINE 1000 mg/dL (NEG); HYALINE CAST, URINE 2 /lpf (RARE); KETONE, URINE 10 mg/dL (NEG); MUCUS URINE FEW /lpf (OCC); NITRITE,URINE NEG (NEG); SQUAMOUS EPITHELIAL CELL URINE 1 /hpf (0-5); URINE COLOR YELLOW (YELLW/STRAW); URINE LEUKOCYTE ESTERASE TRACE (NEG)
[2017-07-13 10:01] LABS: ALT (GPT) 18 U/L (10-53); AST (GOT) 11 U/L (15-37); BICARBONATE 26.7 MEQ/L (21.0-32.0); BLOOD UREA NITROGEN 17 MG/DL (7-18); CALCIUM 9.1 MG/DL (8.5-10.1); CHLORIDE 103 MEQ/L (98-107); GLOMERULAR FILTRATION RATE 44 ML/MIN (>89); GLUCOSE,RANDOM 371 MG/DL (74-106); SODIUM (NA) 137 MEQ/L (136-145)
[2017-07-13 10:03] LABS: ALKALINE PHOSPHATASE 58 U/L (45-117); TOTAL BILIRUBIN ADULT 0.4 MG/DL (0.2-1.0); TOTAL PROTEIN 6.6 GM/DL (6.4-8.2)
[2017-07-13 10:50] VITALS: BP 130/77; TEMP 97.8
== END 2017-07-13 10:50 | disposition home or self-care (01) ==
LOC: NEPE 09:07
DX: E11.65 Type 2 diabetes mellitus with hyperglycemia (principal); D64.9 Anemia, unspecified; E78.00 Pure hypercholesterolemia, unspecified; Z79.84 Long term (current) use of oral hypoglycemic drugs
CPT/HCPCS: 80053; 81001; 82010; 85025; 96374; 99284; J1815